=== PATIENT | female | born 1990 | race Hispanic/Latino ===

== ENCOUNTER 2019-02-12 09:26 | Emergency (ER) | payer SELFPAY ==
[2019-02-12 10:50] LABS: Absolute Lymphocytes (CBC) 1.4 K/uL (0.7-4.9); Basophils % 0.5 % (0-1.3); Lymphocytes % 22.7 % (15.3-44.8); MPV 9.3 fL (7.6-11.3); RBC Red Blood Cell Count 4.08 M/uL (3.86-4.86)
[2019-02-12 11:02] LABS: BUN Blood Urea Nitrogen 12 mg/dL (7-18); Bicarbonate 27 mmol/L (21-32); Glucose Level 93 mg/dL (74-106); Potassium 3.9 mmol/L (3.5-5.1); Sodium Level 142 mmol/L (136-145)
--- NOTE | 2019-02-12 13:07 | ER ---
Nurse's Notes [facility] Name: Robyn Leung Age: 28 yrs Sex: Female : 1990 Arrival Date: 02/12/2019 Time: 09:30 Bed 16 Private MD: Diagnosis: Viral Cephalgia Presentation: 02/12 09:42 Presenting complaint: Patient states: "I woke up today with congestion, a cough, stiff aa5 neck, and I've been having headaches". Transition of care: patient was not received from another setting of care. Onset of symptoms was February 12, 2019. Risk Assessment: Do you want to hurt yourself or someone else? Patient reports no desire to harm self or others. Initial Sepsis Screen: Does the patient meet any 2 criteria? No. Patient's initial sepsis screen is negative. Does the patient have a suspected source of infection? No. Patient's initial sepsis screen is negative. Care prior to arrival: None. 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 - Social history:: Smoking status: Patient/guardian denies using tobacco. - Ebola Screening: : No symptoms or risks identified at this time. - Family history:: not pertinent. - Hospitalizations: : No recent hospitalization is reported. Screenin:00 Abuse screen: Denies threats or abuse. Nutritional screening: No deficits noted. tw2 Tuberculosis screening: No symptoms or risk factors identified. Fall Risk None identified. Assessment: 10:06 Reassessment: provider at bedside at this time. tw2 10:15 General: Appears in no apparent distress. obese, Behavior is calm, cooperative, tw2 appropriate for age. Pain: Denies pain. Neuro: Level of Consciousness is awake, alert, obeys commands, Oriented to person, place, time, situation, Reports "i just feel drowsy like and have a stiff neck". Cardiovascular: Heart tones S1 S2 Patient's skin is warm and dry. Respiratory: Airway is patent Respiratory effort is even, unlabored, Respiratory pattern is regular, symmetrical, Breath sounds are clear bilaterally. GI: No signs and/or symptoms were reported involving the gastrointestinal system. : No signs and/or symptoms were reported regarding the genitourinary system. EENT: Reports nasal congestion nasal discharge that is yellow "i had some discharge this morning but its gone now". Derm: No signs and/or symptoms reported regarding the dermatologic system. Musculoskeletal: Range of motion: intact in all extremities. 11:39 Reassessment: Patient appears in no apparent distress at this time. No changes from tw2 previously documented assessment. Patient and/or family updated on plan of care and expected duration. Pain level reassessed. Patient is alert, oriented x 3, equal unlabored respirations, skin warm/dry/pink. 11:55 Reassessment: [facility] at bedside. jl7 13:09 Reassessment: patient sleeping on bed. mg2 13:29 Reassessment: Patient denies pain at this time. Patient states feeling better. Patient mg2 states symptoms have improved. Vital Signs: 09:43 BP 120 / 74; Pulse 91; Resp 18 S; Temp 98.2(O); Pulse Ox 100% on R/A; Weight 112.49 kg aa5 (R); Height 5 ft. 0 in. (152.40 cm) (R); Pain 2/10; 10:44 BP 110 / 72; Pulse 68; Resp 17; Pulse Ox 100% on R/A; tw2 11:39 BP 115 / 70; Pulse 72; Resp 17; Pulse Ox 98% on R/A; tw2 13:08 BP 137 / 80; Pulse 72; Resp 18; Pulse Ox 100% on R/A; mg2 09:43 Body Mass Index 48.43 (112.49 kg, 152.40 cm) aa5 ED Course: 09:30 Patient arrived in ED. mr 09:43 Triage completed. aa5 09:43 Arm band placed on. aa5 09:55 Droplet isolation initiated. tw2 09:55 Bed in low position. Call light in reach. threat monitoring analyst on. Pulse ox on. NIBP on. tw2 10:00 Iesha Funez RN is Primary Nurse. tw2 10:05 Tarik Ramachandran MD is Attending Physician. rn 10:25 Inserted saline lock: 22 gauge in right antecubital area, using aseptic technique. tw2 Blood collected. 12:04 Report given to Saida burkett. tw2 13:29 No provider procedures requiring assistance completed. IV discontinued, intact, mg2 bleeding controlled, No redness/swelling at site. Pressure dressing applied. Administered Medications: No medications were administered Outcome: 13:06 Discharge ordered by . rn 13:29 Discharged to home ambulatory. mg2 13:29 Condition: stable 13:29 Discharge instructions given to patient, Instructed on discharge instructions, follow up and referral plans. Demonstrated understanding of instructions, follow-up care. 13:29 Patient left the ED. mg2 Signatures: Isamar Gordon Roman, MD MD rn Sonja Nguyễn, RN RN aa5 Iesha Funez RN RN tw2 Walt Mendez, SAIDA RN jl7 Jace Dominguez, RN RN mg2
--- NOTE | 2019-02-12 13:08 | EDPHYS ---
Physician Documentation [facility] Name: Robyn Leung Age: 28 yrs Sex: Female : 1990 Arrival Date: 02/12/2019 Time: 09:30 Bed 16 Private MD: ED Physician Tarik Ramachandran HPI: 02/12 10:22 This 28 yrs old Female presents to ER via Ambulatory with complaints of Cough, rn Congestion, Stiff Neck. 10:22 The patient or guardian reports cough, flu symptoms. Onset: The symptoms/episode rn began/occurred this morning. Severity of symptoms: At their worst the symptoms were mild, in the emergency department the symptoms are unchanged. Modifying factors: The symptoms are alleviated by nothing, the symptoms are aggravated by nothing. The patient has not experienced similar symptoms in the past. The patient has not recently seen a physician. Reports cough, congestion, boss told her to come in because her boss just diagnosed with viral meningitis. Patient reports sore throat, fatigue, headache, congestion, no fever, no medical problems. . 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 - Social history:: Smoking status: Patient/guardian denies using tobacco. - Ebola Screening: : No symptoms or risks identified at this time. - Family history:: not pertinent. - Hospitalizations: : No recent hospitalization is reported. ROS: 10:23 Constitutional: Negative for fever, chills, and weight loss, Eyes: Negative for injury, rn pain, redness, and discharge, ENT: + sore throat and congestion Neck: Negative for injury, and swelling, Cardiovascular: Negative for chest pain, palpitations, and edema, Respiratory: Negative for shortness of breath, wheezing, and pleuritic chest pain, Abdomen/GI: Negative for abdominal pain, nausea, vomiting, diarrhea, and constipation, MS/Extremity: Negative for injury and deformity, Skin: Negative for injury, rash, and discoloration, Neuro: + headache Exam: 10:23 Constitutional: This is a well developed, well nourished patient who is awake, alert, rn and in no acute distress. Head/Face: Normocephalic, atraumatic. Eyes: Pupils equal round and reactive to light, extra-ocular motions intact. Lids and lashes normal. Conjunctiva and sclera are non-icteric and not injected. Cornea within normal limits. Periorbital areas with no swelling, redness, or edema. ENT: + mild pharyngeal erythema with spots on uvula, no stridor, + tender anterior cervical LAD Neck: Trachea midline, no thyromegaly or masses palpated, Supple, full range of motion without nuchal rigidity, or vertebral point tenderness. No Meningismus. Respiratory: No increased work of breathing, no retractions or nasal flaring. Skin: Warm, dry with normal turgor. Normal color with no rashes, no lesions, and no evidence of cellulitis. MS/ Extremity: Pulses equal, no cyanosis. Neurovascular intact. Full, normal range of motion. Equal circumference. Neuro: Awake and alert, GCS 15, oriented to person, place, time, and situation. Cranial nerves II-XII grossly intact. Motor strength 5/5 in all extremities. Sensory grossly intact. Cerebellar exam normal. Vital Signs: 09:43 BP 120 / 74; Pulse 91; Resp 18 S; Temp 98.2(O); Pulse Ox 100% on R/A; Weight 112.49 kg aa5 (R); Height 5 ft. 0 in. (152.40 cm) (R); Pain 2/10; 10:44 BP 110 / 72; Pulse 68; Resp 17; Pulse Ox 100% on R/A; tw2 11:39 BP 115 / 70; Pulse 72; Resp 17; Pulse Ox 98% on R/A; tw2 13:08 BP 137 / 80; Pulse 72; Resp 18; Pulse Ox 100% on R/A; mg2 09:43 Body Mass Index 48.43 (112.49 kg, 152.40 cm) aa5 MDM: 10:05 Patient medically screened. rn 13:04 Differential Diagnosis: Influenza Upper Respiratory Infection Viral Syndrome Other rn viral meningitis. Data reviewed: vital signs, nurses notes, lab test result(s), and as a result, I will discharge patient. Counseling: I had a detailed discussion with the patient and/or guardian regarding: the historical points, exam findings, and any diagnostic results supporting the discharge/admit diagnosis, lab results, radiology results, the need for outpatient follow up, to return to the emergency department if symptoms worsen or persist or if there are any questions or concerns that arise at home. Response to treatment: the patient's symptoms have mildly improved after treatment, and as a result, I will discharge patient. Special discussion: I discussed with the patient/guardian in detail that at this point there is no indication for admission to the hospital. It is understood, however, that if the symptoms persist or worsen the patient needs to return immediately for re-evaluation. ED course: Symptoms consistent with viral syndrome, labs and csf checked for sick exposure/boss, CSF no growth and neg for bacterial meningitis, possible viral meningitis and sent home. Possible that this is viral meningitis, but as I explained to patient, is non-toxic, normal vitals, normal exam, and no treatment for viral meningitis. CLose contact precautions and return precautions given and understood. . 02/12 10:12 Order name: Strep; Complete Time: 11:15 02/12 10:12 Order name: Flu; Complete Time: 11:15 rn 02/12 10:12 Order name: Refugio Screen Profile; Complete Time: 13:04 rn 02/12 10:12 Order name: CBC with Diff; Complete Time: 11:15 rn 02/12 10:12 Order name: Basic Metabolic Panel; Complete Time: 11:15 rn 02/12 10:12 Order name: Procalcitonin; Complete Time: 11:47 rn 02/12 10:12 Order name: IV Start; Complete Time: 10:43 rn 02/12 11:07 Order name: Throat Culture EDMS Administered Medications: No medications were administered Disposition: 02/12/19 13:06 Discharged to Home. Impression: Viral Cephalgia. - Condition is Stable. - Discharge Instructions: General Headache Without Cause. - Medication Reconciliation Form, Thank You Letter, Antibiotic Education, Prescription Opioid Use, Work release form form. - Follow up: Private Physician; When: As needed; Reason: Recheck today's complaints, Re-evaluation by your physician. - Problem is new. - Symptoms have improved. Signatures: Dispatcher [employer] EDMS Tarik Ramachandran MD MD rn Calderon, Audri RN SAIDA aa5 Jace Dominguez RN RN mg2 Corrections: (The following items were deleted from the chart) 13:29 13:06 02/12/2019 13:06 Discharged to Home. Impression: Viral Cephalgia. Condition is mg2 Stable. Forms are Work release form, Medication Reconciliation Form, Thank You Letter, Antibiotic Education, Prescription Opioid Use. Follow up: Private Physician; When: As needed; Reason: Recheck today's complaints, Re-evaluation by your physician. Problem is new. Symptoms have improved. rn
[2019-02-12 13:54] VITALS: TEMP 98.2
[2019-02-12 13:58] VITALS: BP 137/80; O2SAT 100
== END 2019-02-12 13:29 | disposition home or self-care (01) ==
LOC: ER 09:26
DX: G44.89 Other headache syndrome (principal); Z88.0 Allergy status to penicillin
CPT/HCPCS: 36415; 80048; 84145; 85025; 86308; 87070; 87081; 87804; 99285

== ENCOUNTER 2020-06-28 10:59 | Inpatient (IN) | payer SELFPAY ==
[2020-06-28] MEDS ORDERED: ONDANSETRON 4 MG/2 ML VIAL ONE (13:22)
[2020-06-28] MEDS ORDERED: MORPHINE 4 MG/ML SYR ONE ×2 (13:22→17:09)
[2020-06-28] MEDS ORDERED: FAMOTIDINE 20 MG/2 ML VIAL IV ONE (13:22)
--- NOTE | 2020-06-28 14:07 | RAD REPORT ---
EXAM DESCRIPTION: US - Abdomen Exam Limited - 06/28/2020 1:32 pm CLINICAL HISTORY: Abdominal pain. COMPARISON: None. FINDINGS: The gallbladder wall is borderline thickened. . A 1.6 centimeter stone is present within t he gallbladder neck. The biliary tree is normal caliber. IMPRESSION: 1.6 centimeter gallstone within the neck of the gallbladder Borderline thickening of the gallbladder wall may indicate cholecystitis or be a normal finding for t he patient and should be correlated clinically.
[2020-06-28 14:08] LABS: Basophils % 0.4 % (0-1.3); Hematocrit 27.4 % (36.0-45.0); Lymphocytes % 27.3 % (15.3-44.8); MPV 9.1 fL (7.6-11.3); RBC Red Blood Cell Count 4.09 M/uL (3.86-4.86)
[2020-06-28 14:25] LABS: ALT/SGPT 19 U/L (12-78); AST/SGOT 15 U/L (15-37); Albumin 3.3 g/dL (3.4-5.0); Alkaline Phosphatase 52 U/L (45-117); BUN Blood Urea Nitrogen 13 mg/dL (7-18); Bicarbonate 27 mmol/L (21-32); Bilirubin Direct < 0.1 mg/dL (0-0.2); Bilirubin Total 0.4 mg/dL (0.2-1.0); Glucose Level 89 mg/dL (74-106); Lipase 108 U/L (73-393); Potassium 4.1 mmol/L (3.5-5.1); Sodium Level 141 mmol/L (136-145)
[2020-06-28 14:33] LABS: Anisocytosis 1+; Blood Morphology Comment NOTED (NOT SEEN); Hypochromasia 1+; Platelet Estimate ADEQ; Platelets, Giant NOTED; White Blood Cell Scan OK (OK)
[2020-06-28 14:39] LABS: Urine Blood NEGATIVE (NEG); Urine Glucose NEGATIVE (NEG); Urine Protein NEGATIVE (NEG); Urine Specific Gravity 1.025 (1.005-1.030); Urine pH 8.5 (5.0-7.0)
--- NOTE | 2020-06-28 15:30 | ER ---
Nurse's Notes [facility] Name: Robyn Leung Age: 29 yrs Sex: Female : 1990 Arrival Date: 06/28/2020 Time: 11:01 Bed 14 Private MD: Diagnosis: Acute cholecystitis Presentation: 06/28 11:05 Chief complaint: Patient states: Nausea and epigastric pain 2 weeks. Intermittent, last ca1 about 20 minutes and just goes away. Today, it started at around 0900, severe and did not go away, now radiating to the back. Reports increased in BM but not diarrhea, vomiting. Coronavirus screen: Client denies travel out of the [place] in the last 14 days. nausea, vomiting. Client presents with at least one sign or symptom that may indicate coronavirus-19. Standard/surgical mask placed on the client. Provider contacted for isolation considerations. Ebola Screen: Patient negative for fever greater than or equal to 101.5 degrees Fahrenheit, and additional compatible Ebola Virus Disease symptoms Patient denies exposure to infectious person. Patient denies travel to an Ebola-affected area in the 21 days before illness onset. No symptoms or risks identified at this time. Initial Sepsis Screen: Does the patient meet any 2 criteria? No. Patient's initial sepsis screen is negative. Does the patient have a suspected source of infection? No. Patient's initial sepsis screen is negative. Risk Assessment: Do you want to hurt yourself or someone else? Patient reports no desire to harm self or others. Onset of symptoms was June 28, 2020. 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 - Social history:: Smoking status: Patient reports the use of cigarette tobacco products, denies chronic smoking, but will smoke occasionally. Screenin:11 Abuse screen: Denies threats or abuse. Nutritional screening: No deficits noted. jd3 Tuberculosis screening: No symptoms or risk factors identified. Fall Risk Ambulatory Aid- None/Bed Rest/Nurse Assist (0 pts). Gait- Normal/Bed Rest/Wheelchair (0 pts) Mental Status- Oriented to own ability (0 pts). Total Mckeon Fall Scale indicates No Risk (0-24 pts). Assessment: 13:09 General: Appears in no apparent distress. uncomfortable, Behavior is calm, cooperative, jd3 appropriate for age. Pain: Complains of pain in abdomen Pain radiates to mid back area Quality of pain is described as sharp, tender. Neuro: Level of Consciousness is awake, alert, obeys commands, Oriented to person, place, time, situation. Cardiovascular: Denies chest pain, Capillary refill < 3 seconds Patient's skin is warm and dry. Respiratory: Airway is patent Respiratory effort is even, unlabored, Respiratory pattern is regular, symmetrical, Denies cough, shortness of breath. GI: Abdomen is round non-distended, Abd is soft X 4 quads Abdomen is tender to palpation X 4 quads. Reports upper abdominal pain, nausea. : No signs and/or symptoms were reported regarding the genitourinary system. EENT: No signs and/or symptoms were reported regarding the EENT system. Derm: Skin is intact, Skin is dry, Skin is normal, Skin temperature is warm. Musculoskeletal: Circulation, motion, and sensation intact. Range of motion: intact in all extremities. 14:11 Reassessment: Patient appears in no apparent distress at this time. No changes from jd3 previously documented assessment. Patient and/or family updated on plan of care and expected duration. Pain level reassessed. Patient is alert, oriented x 3, equal unlabored respirations, skin warm/dry/pink. 15:12 Reassessment: Patient appears in no apparent distress at this time. Patient and/or jd3 family updated on plan of care and expected duration. Pain level reassessed. Patient is alert, oriented x 3, equal unlabored respirations, skin warm/dry/pink. Patient states feeling better. 17:10 Reassessment: Patient appears in no apparent distress at this time. Patient and/or jd3 family updated on plan of care and expected duration. Pain level reassessed. Patient is alert, oriented x 3, equal unlabored respirations, skin warm/dry/pink. pt reporting returning pain, provider notified, medicated per order, see MAR. 18:13 Reassessment: Patient appears in no apparent distress at this time. Patient and/or jd3 family updated on plan of care and expected duration. Pain level reassessed. Patient is alert, oriented x 3, equal unlabored respirations, skin warm/dry/pink. report attempt made to 2nd floor, was told nurse will call back Patient states feeling better. Vital Signs: 11:05 BP 114 / 064; Pulse 86; Resp 16 S; Temp 97.9(TE); Pulse Ox 100% on R/A; Weight 110.22 ca1 kg (R); Height 5 ft. 0 in. (152.40 cm) (R); Pain 7/10; 15:11 BP 129 / 68; Pulse 67; Resp 17 S; Pulse Ox 97% on R/A; jd3 17:09 BP 108 / 64; Pulse 74; Resp 17 S; Pulse Ox 100% on R/A; jd3 18:00 BP 110 / 66; Pulse 87; Resp 17 S; Pulse Ox 100% on R/A; jd3 11:05 Body Mass Index 47.46 (110.22 kg, 152.40 cm) ca1 ED Course: 11:01 Patient arrived in ED. ag5 11:08 Triage completed. ca1 11:08 Arm band placed on right wrist. ca1 12:16 Kain Berman PA is PHCP. jmm 12:16 Max Main MD is Attending Physician. jmm 12:49 Mukesh Schwartz RN is Primary Nurse. jd3 13:08 Missed attempt(s): 20 gauge in right forearm. Bleeding controlled, band aid applied, jd3 catheter tip intact. 13:11 Patient has correct armband on for positive identification. Placed in gown. Bed in low jd3 position. Call light in reach. Side rails up X 1. Pulse ox on. NIBP on. 13:27 US Abdomen Limited In Process Unspecified. EDMS 14:01 Inserted saline lock: 22 gauge in right antecubital area, using aseptic technique. ss Blood collected. 15:29 Lane Law DO is Hospitalizing Provider. m 18:14 No provider procedures requiring assistance completed. Patient admitted, IV remains in jd3 place. Administered Medications: 14:08 Drug: morphine 4 mg Route: IVP; Site: right antecubital; jd3 15:05 Follow up: Response: No adverse reaction; RASS: Alert and Calm (0) jd3 14:09 Drug: Zofran (Ondansetron) 4 mg Route: IVP; Site: right antecubital; jd3 15:05 Follow up: Response: No adverse reaction jd3 14:10 Drug: Pepcid 20 mg Route: IVP; Site: right antecubital; jd3 15:10 Follow up: Response: No adverse reaction jd3 15:29 Drug: Flagyl 500 mg Volume: 100 ml; Route: IVPB; Rate: 200 ml/hr; Infused Over: 30 jd3 mins; Site: right antecubital; 16:18 Follow up: Response: No adverse reaction; IV Status: Completed infusion; IV Intake: jd3 100ml 16:18 Drug: Cipro 400 mg Volume: 200 ml; Route: IVPB; Infused Over: 60 mins; Site: right jd3 antecubital; 17:15 Follow up: Response: No adverse reaction; IV Status: Completed infusion jd3 17:00 Drug: morphine 4 mg Route: IVP; Site: right antecubital; jd3 18:00 Follow up: Response: No adverse reaction; RASS: Alert and Calm (0) jd3 Intake: 16:18 IV: 100ml; Total: 100ml. jd3 Outcome: 15:30 Decision to Hospitalize by Provider. isabela 18:37 Admitted to Med/surg accompanied by tech, via wheelchair, room 213, with chart, Report jd3 called to Iris CINTRON 18:37 Condition: stable 18:37 Instructed on the need for admit, Demonstrated understanding of instructions. 18:38 Patient left the ED. jd3 Signatures: Dispatcher [employer] EDMS Kain Berman PA PA jmm Smirch, Shelby, RN RN ss Davies, Jonathon, RN RN Zoey Solorio RN RN ca1 Gaskin, Ajare [facility]
--- NOTE | 2020-06-28 15:30 | EDPHYS ---
Physician Documentation [facility] Name: Robyn Leung Age: 29 yrs Sex: Female : 1990 Arrival Date: 06/28/2020 Time: 11:01 Bed 14 Private MD: ED Physician Max Main HPI: 06/28 12:44 This 29 yrs old Female presents to ER via Ambulatory with complaints of jmm Abdominal Pain. 12:44 The patient presents with abdominal pain. Onset: The symptoms/episode began/occurred jmm gradually. The symptoms do not radiate. Associated signs and symptoms: Pertinent positives: vomiting. The symptoms are described as achy. Modifying factors: The symptoms are alleviated by nothing, the symptoms are aggravated by nothing. This is a 29 year old female with no chronic medical conditions that presents to the ED with complaints of epigastric pain beginning approx 2 weeks ago worsened with eating. Patient states pain worsened earlier today. Denies fever. . 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 - Social history:: Smoking status: Patient reports the use of cigarette tobacco products, denies chronic smoking, but will smoke occasionally. ROS: 12:44 Constitutional: Negative for fever, chills, and weight loss, Cardiovascular: Negative jmm for chest pain, palpitations, and edema, Respiratory: Negative for shortness of breath, cough, wheezing, and pleuritic chest pain. 12:44 Abdomen/GI: Positive for abdominal pain. 12:44 All other systems are negative. Exam: 12:44 Constitutional: This is a well developed, well nourished patient who is awake, alert, jmm and in no acute distress. Head/Face: atraumatic. Eyes: EOMI, no conjunctival erythema appreciated ENT: Moist Mucus Membranes Neck: Trachea midline, Supple Chest/axilla: Normal chest wall appearance and motion. Cardiovascular: Regular rate and rhythm. No edema appreciated Respiratory: Normal respirations, no respiratory distress appreciated 12:44 Back: Normal ROM Skin: General appearance color normal MS/ Extremity: Moves all extremities, no obvious deformities appreciated, no edema noted to the lower extremities Neuro: Awake and alert, normal gait Psych: Behavior is normal, Mood is normal, Patient is cooperative and pleasant 12:44 Abdomen/GI: Inspection: obese Bowel sounds: normal, Palpation: nontender, moderate abdominal tenderness, in the right upper quadrant. Vital Signs: 11:05 BP 114 / 064; Pulse 86; Resp 16 S; Temp 97.9(TE); Pulse Ox 100% on R/A; Weight 110.22 ca1 kg (R); Height 5 ft. 0 in. (152.40 cm) (R); Pain 7/10; 15:11 BP 129 / 68; Pulse 67; Resp 17 S; Pulse Ox 97% on R/A; jd3 17:09 BP 108 / 64; Pulse 74; Resp 17 S; Pulse Ox 100% on R/A; jd3 18:00 BP 110 / 66; Pulse 87; Resp 17 S; Pulse Ox 100% on R/A; jd3 11:05 Body Mass Index 47.46 (110.22 kg, 152.40 cm) ca1 MDM: 12:33 Patient medically screened. [facility] 15:28 Data reviewed: vital signs, nurses notes. Counseling: I had a detailed discussion with [facility] the patient and/or guardian regarding: the historical points, exam findings, and any diagnostic results supporting the discharge/admit diagnosis, lab results, radiology results, the need for further work-up and treatment in the hospital. ED course: I discussed the patient with Dr. Coleman and Dr. Law whom accepted admission. . 06/28 12:43 Order name: Basic Metabolic Panel; Complete Time: 14:27 [facility] 06/28 12:43 Order name: CBC with Diff; Complete Time: 14:40 [facility] 06/28 12:43 Order name: Hepatic Function; Complete Time: 14:27 [facility] 06/28 12:43 Order name: Lipase; Complete Time: 14:27 [facility] 06/28 13:29 Order name: Urine Dipstick--Ancillary (enter results); Complete Time: 14:40 06/28 13:29 Order name: Urine --Ancillary (enter results); Complete Time: 14:40 06/28 12:48 Order name: US Abdomen Limited; Complete Time: 14:10 [facility] 06/28 14:12 Order name: CBC Smear Scan; Complete Time: 14:40 [facility] 06/28 14:12 Order name: Type And Screen [facility] 06/28 17:03 Order name: SARS-COV-2 RT PCR; Complete Time: 17:30 [facility] 06/28 17:55 Order name: Antibody Identification [facility] 06/28 12:43 Order name: IV Saline Lock; Complete Time: 14:01 [facility] 06/28 12:43 Order name: Labs collected and sent; Complete Time: 14:01 [facility] 06/28 12:43 Order name: Urine Dipstick-Ancillary (obtain specimen); Complete Time: 13:18 [facility] 06/28 12:43 Order name: Urine Test (obtain specimen); Complete Time: 13:18 [facility] Administered Medications: 14:08 Drug: morphine 4 mg Route: IVP; Site: right antecubital; jd3 15:05 Follow up: Response: No adverse reaction; RASS: Alert and Calm (0) jd3 14:09 Drug: Zofran (Ondansetron) 4 mg Route: IVP; Site: right antecubital; jd3 15:05 Follow up: Response: No adverse reaction jd3 14:10 Drug: Pepcid 20 mg Route: IVP; Site: right antecubital; jd3 15:10 Follow up: Response: No adverse reaction jd3 15:29 Drug: Flagyl 500 mg Volume: 100 ml; Route: IVPB; Rate: 200 ml/hr; Infused Over: 30 jd3 mins; Site: right antecubital; 16:18 Follow up: Response: No adverse reaction; IV Status: Completed infusion; IV Intake: jd3 100ml 16:18 Drug: Cipro 400 mg Volume: 200 ml; Route: IVPB; Infused Over: 60 mins; Site: right jd3 antecubital; 17:15 Follow up: Response: No adverse reaction; IV Status: Completed infusion jd3 17:00 Drug: morphine 4 mg Route: IVP; Site: right antecubital; jd3 18:00 Follow up: Response: No adverse reaction; RASS: Alert and Calm (0) jd3 Disposition: 18:58 Co-signature as Attending Physician, Max Main MD I agree with the assessment and stacy plan of care. Disposition: 06/28/20 15:[address] Law for Observation. Preliminary diagnosis is Acute cholecystitis. - Bed requested for Telemetry/MedSurg (observation). - Status is Observation. jd3 - Condition is Stable. - Problem is new. - Symptoms are unchanged. Signatures: Dispatcher [employer] EDKS Michell Faria, RN RN Max Casillas MD MD cha Mickail, Joel, PA PA Mukesh Henley RN RN jd3 Zoey Gamez RN RN ca1 Corrections: (The following items were deleted from the chart) 16:23 15:17 CORONAVIRUS+MR.LAB.BRZ ordered. [facility] EDKS 17:05 15:30 Hospitalization Ordered by Lane Law DO for Observation. Preliminary diagnosis is Acute cholecystitis. Bed requested for Telemetry/MedSurg (observation). Status is Observation. Condition is Stable. Problem is new. Symptoms are unchanged. [facility] 18:38 17:05 06/28/2020 15:30 Hospitalization Ordered by Lane Law DO for Observation. jd3 Preliminary diagnosis is Acute cholecystitis. Bed requested for Telemetry/MedSurg (observation). Status is Observation. Condition is Stable. Problem is new. Symptoms are unchanged. dw
[2020-06-28] MEDS ORDERED: METRONIDAZOLE 500mg IVPB 500 MG/100 ML BAG IV ONE (15:40)
[2020-06-28] MEDS ORDERED: CIPROFLOXACIN 400mg IV 400 MG/200 ML BAG IV ONE (15:40)
--- NOTE | 2020-06-28 16:06 | P.HP ---
Certification for Inpatient Patient admitted to: Observation With expected LOS: <2 Midnights Patient will require the following post-hospital care: None Practitioner: I am a practitioner with admitting privileges, knowledge of patient current condition, hospital course, and medical plan of care. Services: Services provided to patient in accordance with Admission requirements found in Title 42 Section 412.3 of the Code of Federal Regulations Patient History Date of Service: 06/28/20 Primary Care Provider: Leonides Osborn NP Reason for admission: Epigastric pain, nausea, vomiting History of Present Illness: 29-year-old female with history of nausea, vomiting and abdominal pain. Patient reports she has been having abdominal pain for over 2 weeks. Pain is mainly to the epigastric region. It radiate to the back. Pain comes and goes. Worse with certain foods. She reported is increased nausea, vomiting since Sunday. Pain was severe today. She had to go home from work due to the pain. Patient came to the ER for further evaluation. In the ER patient was evaluated. Patient was anemic with hemoglobin 8.4. Patient appears to have underlying iron deficiency anemia. test negative. Urinalysis unremarkable. CMP unremarkable. Abdominal ultrasound showed 1.6 cm gallstone within the neck of the gallbladder. Borderline thickening of the gallbladder wall indicated cholecystitis. ER physician spoke to surgery. Surgery recommended hospitalization for treatment. Surgery requested that the patient be admitted under the hospitalist and surgery to be consulted. When I saw the patient ER, pain improved with medication. Allergies penicillin G Allergy (Mild, Verified 08/08/11 04:55) Rash PENICILLINS Allergy (Uncoded 05/19/15 08:13) Unknown Home medications list reviewed: Yes - Past Medical/Surgical History Diabetic: No -: Iron deficiency anemia -: Social tobacco/alcohol use -: Tubal ligation Psychosocial/ Personal History: Patient is - Family History Family History: Reviewed- Non-Contributory - Social History Smoking Status: Heavy Tobacco smoker (>10 cigarettes/day) Alcohol use: Yes CD- Drugs: No Caffeine use: Yes Place of Residence: Home Review of Systems General: As per HPI Eyes: Unremarkable ENT: Unremarkable Respiratory: Unremarkable Gastrointestinal: Nausea, Vomiting, Abdominal Pain, As per HPI Genitourinary: Unremarkable Musculoskeletal: Unremarkable Integumentary: Unremarkable Neurological: Unremarkable Lymphatics: Unremarkable Physical Examination - Physical Exam General: Alert, In no apparent distress, Oriented x3 HEENT: Atraumatic, Normocephalic, Mucous membr. moist/pink Neck: Supple Respiratory: Clear to auscultation bilaterally, Normal air movement Cardiovascular: Normal pulses, Regular rate/rhythm Gastrointestinal: Normal bowel sounds, Soft and benign, Non-distended, No rebound, No guarding, Tenderness (Pain to the epigastric and right upper quadrant region with palpation) Musculoskeletal: No erythema, No tenderness, No warmth Integumentary: No tenderness/swelling, No erythema, No warmth, No cyanosis Neurological: Normal speech, Normal strength at 5/5 x4 extr, Normal tone, Normal affect - Studies Laboratory Data (last 24 hrs) 06/28/20 14:00: WBC 7.1, Hgb 8.4 L, Hct 27.4 L, Plt Count 308 06/28/20 14:00: Sodium 141, Potassium 4.1, BUN 13, Creatinine 0.55, Glucose 89, Total Bilirubin 0.4, AST 15, ALT 19, Alkaline Phosphatase 52, Lipase 108 Assessment and Plan - Plan Impression: Abdominal pain, nausea vomiting secondary to acute cholecystitis with 1.6 cm gallstone within the neck of the gallbladder Chronic iron deficiency anemia Plan: Patient will be admitted for further evaluation and treatment. Will keep the patient NPO. Will continue with IV antibiotic therapy-Cipro and Flagyl. Will provide medication for pain and antibiotic therapy. Surgery has been consulted. ER physician spoke to surgery earlier. Anticipate surgery tomorrow morning. Will continue with IV fluids. Will provide DVT prophylaxis. Will evaluate for her chronic iron deficiency anemia. Will continue to reassess and monitor closely. Possible discharge as early as tomorrow if improved after surgery. Discharge Plan: Home Plan to discharge in: 48 Hours - Advance Directives Does patient have a Living Will: No Does patient have a Durable POA for Healthcare: No - Code Status/Comfort Care Code Status Assessed: Yes (Full code) Time Spent Managing Pts Care (In Minutes): 55
[2020-06-28] MEDS ORDERED: ACETAMINOPHEN 650MG/RECT SUPP PR PRN (18:53)
[2020-06-28] MEDS ORDERED: ONDANSETRON 4 MG/2 ML VIAL IV PRN (18:53)
[2020-06-28] MEDS ORDERED: MORPHINE 2 MG/ML SYR IV PRN (18:53)
[2020-06-28] MEDS ORDERED: ACETAMINOPHEN 500 MG TAB PO PRN (18:53)
[2020-06-28] MEDS ORDERED: METRONIDAZOLE 500mg IVPB 500 MG/100 ML BAG IV SCH (20:00)
[2020-06-28 20:02] LABS: Urine Appearance CLEAR; Urine Bilirubin NEGATIVE (NEG); Urine Blood NEGATIVE (NEG); Urine Color YELLOW; Urine Glucose NEGATIVE (NEG); Urine Protein 1+ (NEG); Urine Specific Gravity 1.025 (1.005-1.030)
[2020-06-28] MEDS: D5 0.9 NS 1,000 ML IV SCH (20:08)
[2020-06-28 20:15] LABS: Urine Microscopic Reflex ORDER UMIC
[2020-06-28] MEDS ORDERED: CIPROFLOXACIN 400mg IV 400 MG/200 ML BAG IV SCH (21:00)
[2020-06-28 21:24] LABS: Urine Amorphous Sediment 2+ /HPF (NONE SEEN); Urine Bacteria 20-50 /HPF (<20); Urine Mucus 2+ /HPF (NONE SEEN); Urine RBC <5 /HPF (NONE SEEN)
[2020-06-28 22:54] VITALS: BMI 39.2
[2020-06-29] MEDS: METRONIDAZOLE 500mg IVPB 500 MG/100 ML BAG IV SCH ×3 (00:01→16:05)
[2020-06-29 03:59] LABS: Absolute Lymphocytes (CBC) 1.8 K/uL (0.7-4.9); Basophils % 0.6 % (0-1.3); Hematocrit 24.5 % (36.0-45.0); Lymphocytes % 31.9 % (15.3-44.8); MPV 9.4 fL (7.6-11.3); RBC Red Blood Cell Count 3.63 M/uL (3.86-4.86)
[2020-06-29 04:35] LABS: BUN Blood Urea Nitrogen 9 mg/dL (7-18); Bicarbonate 26 mmol/L (21-32); Ferritin 2.7 ng/mL (8-388); Glucose Level 102 mg/dL (74-106); Magnesium 1.9 mg/dL (1.8-2.4); Potassium 3.6 mmol/L (3.5-5.1); Sodium Level 140 mmol/L (136-145); Transferrin 239 mg/dL (200-360)
[2020-06-29] MEDS: D5 0.9 NS 1,000 ML IV SCH ×2 (04:52→14:53)
[2020-06-29] MEDS ORDERED: INFLUENZA VACCINE (for 3y+) 0.5 ML DOSE IMVAC ONE (06:00)
[2020-06-29] MEDS: CIPROFLOXACIN 400mg IV 400 MG/200 ML BAG IV SCH ×2 (08:13→20:15)
[2020-06-29] MEDS ORDERED: FENTANYL CITR 100 MCG/2 ML ONE (08:20)
[2020-06-29] MEDS ORDERED: propofoL 200 MG/20 ML VIAL IV ONE (08:20)
[2020-06-29] MEDS ORDERED: LIDOCAINE 2% MPF 5 ML VIAL ONE (08:20)
[2020-06-29] MEDS ORDERED: dexAMETHasone 10 MG/ML VIAL ONE (08:20)
[2020-06-29] MEDS ORDERED: MIDAZOLAM HCL 2 MG/2 ML INJ ONE (08:20)
[2020-06-29] MEDS ORDERED: ONDANSETRON 4 MG/2 ML VIAL ONE (08:21)
[2020-06-29] MEDS ORDERED: ROCURONIUM 50 MG/5 ML VIAL IV ONE (08:21)
[2020-06-29] MEDS ORDERED: Ringers Lactate 1,000 ML IV ONE (08:55)
[2020-06-29] MEDS: Ringers Lactate 1,000 ML IV ONE ×2 (10:55→11:11)
[2020-06-29] MEDS ORDERED: HYDROMORPHONE HCL 1 MG/ML INJ ONE (10:56)
--- NOTE | 2020-06-29 11:09 | P.OP ---
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
[2020-06-29] MEDS ORDERED: GLYCOPYRROLATE 0.2 MG/ML SYR ONE (11:19)
[2020-06-29] MEDS: HYDROMORPHONE HCL 2 MG/ML inj ONE ×3 (11:25→12:12)
[2020-06-29] MEDS ORDERED: NEOSTIGMINE 1 MG/ML -5 ML ONE (11:30)
[2020-06-29] MEDS ORDERED: HYDROMORPHONE HCL 1 MG/ML INJ IV PRN (11:31)
--- NOTE | 2020-06-29 11:34 | PREOPCON ---
Date of Consultation: 06/28/2020 Reason: Abdominal pain. History Of Present Illness: Patient is a 29-year-old female who comes in with 2-week history of bili becky colic, over the last 3 or 4 days, it has gotten worse. This is postprandial in nature with epiga stric pain going to the back associated with nausea, bloating, belching, and heartburn. No vomiting. No diarrhea or constipation. No blood in her stool. No dysuria, hematuria. No sore throat, runny nose, cough, headaches, dizziness. No chest pain. Review of Systems: Otherwise, unremarkable. Past Medical History: Significant for iron-deficient anemia and tubal ligation. Allergies: INCLUDE PENICILLIN. Social History: Patient does smoke and drink occasionally. Family History: Significant for diabetes. Physical Examination: Vital Signs: Stable. She is afebrile. General: She is awake, alert, and oriented x3. Head and Neck: Cranial nerves 2 through 12 are grossly within normal limits. Neck: No neck masses. No JVD. Throat clear. Neck: Supple. Chest: Clear. Heart: S1 and S2. Abdomen: Soft, nondistended, positive right upper quadrant tenderness. No rebound, rigidity, or gua rding. Extremities: Adequately perfused. Nontender. Neuro: Nonfocal. Imaging: Abdominal ultrasound reviewed, shows a 1.6 cm gallstone within the neck of the gallbladder but borderline thickening of the gallbladder wall. Laboratory Data: Her white count is 5.7; her H and H on admission were 8.4 and 27.4, this morning ar e 7.5 and 24.5; there is no left shift. LFTs are within normal limits. Her MCV is 67.5. Assessment: 29-year-old female with acute cholecystitis and cholelithiasis and iron-deficiency anemi a. Recommendation: Medical workup for the iron deficiency and we will go ahead and proceed with darrel king, possibly open. Patient and her understand the risks, benefits, and alternatives and agre es to procedure. IV antibiotics is ordered. /MODL Voice ID: [id number] Report ID: [id number]
--- NOTE | 2020-06-29 11:43 | OP ---
Date of Procedure: 06/29/2020 Surgeon: Lowell Coleman MD Wheel Filler: JUAN Pollard. Preoperative Diagnoses: Acute cholecystitis and cholelithiasis, anemia. Postoperative Diagnoses: Acute cholecystitis and cholelithiasis, anemia. Procedure: Laparoscopic cholecystectomy. Estimated Blood Loss: Minimal. Specimen: Gallbladder. Finding: As above. Anesthesia: General. Complications: None. Disposition: The patient tolerated the procedure in stable condition, taken to Recovery in good gene ral condition. Description Of Procedure: The patient was brought to the OR and placed in supine position. General anesthesia begun. The patient was prepped and draped in the usual sterile fashion. Marcaine 0.5% wa s infiltrated locally. A 15-blade was used to make a 1 cm supraumbilical midline incision. Subcutan eous tissue was divided. Fascia was identified and divided. #1 Vicryl stay suture was placed. Preethi toneal cavity was entered with sharp and blunt dissection. 12 mm trocar was placed into the peritone al cavity under direct vision. Pneumoperitoneum was established. Then, three 5 mm trocars placed, o ne in the epigastrium just to the right of midline and two in the right subcostal region. Laparoscop y revealed inflammation of the gallbladder consistent with acute cholecystitis and distention of the gallbladder. Fundus retracted superiorly. Infundibulum was identified and retracted inferolaterally . Cystic duct and cystic artery were clearly identified with blunt dissection. Clips were placed. Both structures were divided. Cautery used to remove the gallbladder from the liver bed. Bleeding o n the liver bed was controlled with cautery. Gallbladder was retrieved through the umbilicus via an EndoCatch bag. Right upper quadrant was irrigated, effluent was clear. No evidence of bleeding or b ile leakage appreciated. Subsequently, all trocars were removed under direct vision. Stay sutures w ere tied to each other and reapproximated the fascial defect. Subcutaneous wounds were irrigated. B leeding was controlled with cautery. 3-0 chromic was used to approximate the subcutaneous tissue and unique were used to close skin. Sterile dressing was applied. The patient was awakened and taken to Recovery in good general condition. /MODL Voice ID: [id number] Report ID: [id number]
[2020-06-29] MEDS ORDERED: POTASSIUM CL SA 10 MEQ TAB PO ONE (12:00)
[2020-06-29] MEDS ORDERED: TRAMADOL HCL 50 MG TAB PO PRN (12:48)
--- NOTE | 2020-06-29 12:48 | P.PN ---
Subjective Date of Service: 06/29/20 Primary Care Provider: Leonides Osborn NP Chief Complaint: Epigastric pain, nausea, vomiting Subjective: Improving, Doing well Physical Examination - Vital Signs Temperature: 97.3 F Blood Pressure: 134/77 Pulse: 72 Respirations: 16 Pulse Ox (%): 98 - Physical Exam General: Alert, In no apparent distress, Oriented x3, Cooperative HEENT: Atraumatic Respiratory: Clear to auscultation bilaterally Cardiovascular: Normal pulses, Regular rate/rhythm Gastrointestinal: Normal bowel sounds, Tenderness (Pain to the right upper quadrant and epigastric region noted.) Neurological: Normal speech, Normal strength at 5/5 x4 extr, Normal tone, Normal affect - Studies Laboratory Data (last 24 hrs) 06/29/20 03:36: Sodium 140, Potassium 3.6, BUN 9, Creatinine 0.62, Glucose 102, Magnesium 1.9 06/29/20 03:36: WBC 5.7 D, Hgb 7.5 L*, Hct 24.5 L, Plt Count 273 06/28/20 14:00: WBC 7.1, Hgb 8.4 L, Hct 27.4 L, Plt Count 308 06/28/20 14:00: Sodium 141, Potassium 4.1, BUN 13, Creatinine 0.55, Glucose 89, Total Bilirubin 0.4, AST 15, ALT 19, Alkaline Phosphatase 52, Lipase 108 Microbiology Data (last 24 hrs): 06/28/20 19:53 Blood - Blood Anaerobic Blood Culture - Final 06/28/20 19:44 Blood - Blood Anaerobic Blood Culture - Final Medications List Reviewed: Yes Assessment & Plan Discharge Plan: Home Plan to discharge in: 24 Hours Physician Review Additional Text: Impression: Abdominal pain, nausea vomiting secondary to acute cholecystitis with 1.6 cm gallstone within the neck of the gallbladder status post laparoscopic cholecystectomy Chronic iron and B12 deficiency anemia Plan: Abdominal pain, nausea vomiting secondary to acute cholecystitis with 1.6 cm gallstone within the neck of the gallbladder status post laparoscopic cholecystectomy: Case discussed with surgery after laparoscopic cholecystectomy. Surgery wants to monitor the patient Overnite. Diet ordered. Diet is to be advanced as tolerated. Will provide medication for pain. Patient with iron and B12 deficiency. Will start supplementation. Patient will need further workup as an outpatient with GI. No heavy lifting, pushing or pulling. Anticipate improvement over the next 24 hr with possible discharge tomorrow. Chronic iron and B12 deficiency anemia: Hemoglobin stable. Will start iron and B12 supplementation. Suspect this may be diet related. Patient should have GI workup as an outpatient to further evaluate. This may include EGD and colonoscopy. Patient also should see gynecology as an outpatient. Time Spent Managing Pts Care (In Minutes): 55
[2020-06-29] MEDS ORDERED: CYANOCOBALAMIN 1000MCG/ML INJ IM ONE (12:49)
[2020-06-29] MEDS: FAMOTIDINE 20 MG TAB PO SCH ×2 (13:15→20:10)
[2020-06-29] MEDS: ONDANSETRON 4 MG/2 ML VIAL IV PRN ×2 (13:15→20:11)
[2020-06-29] MEDS: SOD FERRIC GLUC COMPLX/SUCROSE 125 MG in NA CHLORIDE 0.9% 100 ML IV SCH (13:15)
[2020-06-29] MEDS ORDERED: Phenylephrine HCl 10 MG/ML 1 ML VIAL ONE (13:24)
[2020-06-29] MEDS ORDERED: NS 0.9% VIAL 10 ML ONE (13:24)
[2020-06-29] MEDS: HYDROCODONE/APAP 7.5/325 MG TAB PO PRN ×2 (16:07→20:11)
[2020-06-29 19:10] LABS: Hematocrit 27.6 % (36.0-45.0)
[2020-06-29] MEDS ORDERED: ENOXAPARIN 40 MG/0.4 ML SQ SCH (21:00)
[2020-06-29 21:43] VITALS: O2SAT 93
[2020-06-30] MEDS: METRONIDAZOLE 500mg IVPB 500 MG/100 ML BAG IV SCH ×2 (00:42→08:43)
[2020-06-30] MEDS: D5 0.9 NS 1,000 ML IV SCH (00:53)
[2020-06-30] MEDS ORDERED: D5 0.9 NS 1,000 ML IV SCH (03:53)
[2020-06-30 06:08] LABS: BUN Blood Urea Nitrogen 4 mg/dL (7-18); Bicarbonate 24 mmol/L (21-32); Glucose Level 111 mg/dL (74-106); Potassium 4.1 mmol/L (3.5-5.1); Sodium Level 139 mmol/L (136-145)
[2020-06-30] MEDS: HYDROCODONE/APAP 7.5/325 MG TAB PO PRN (06:32)
[2020-06-30 07:35] LABS: Basophils % 0.4 % (0-1.3); Hematocrit 26.6 % (36.0-45.0); Lymphocytes % 7.8 % (15.3-44.8); MPV 9.6 fL (7.6-11.3); RBC Red Blood Cell Count 3.96 M/uL (3.86-4.86)
[2020-06-30 08:02] LABS: Anisocytosis 3+; Blood Morphology Comment NOTED (NOT SEEN); Hypochromasia 2+; Ovalocytes SLIGHT; Platelet Estimate ADEQ; Platelets, Giant FEW; Polychromasia 1+; White Blood Cell Scan OK (OK)
[2020-06-30 08:36] VITALS: BP 126/75; TEMP 97.8
[2020-06-30] MEDS: SOD FERRIC GLUC COMPLX/SUCROSE 125 MG in NA CHLORIDE 0.9% 100 ML IV SCH (08:42)
[2020-06-30] MEDS: FAMOTIDINE 20 MG TAB PO SCH (08:42)
[2020-06-30] MEDS: ONDANSETRON 4 MG/2 ML VIAL IV PRN (08:45)
[2020-06-30] MEDS ORDERED: CYANOCOBALAMIN 1,000 MCG TAB PO SCH (09:00)
[2020-06-30] MEDS: CIPROFLOXACIN 400mg IV 400 MG/200 ML BAG IV SCH (09:00)
--- NOTE | 2020-06-30 09:22 | P.DS ---
Admission Date: 06/29/20 Discharge Date: 06/30/20 Primary Care Provider: Leonides Dickson NP Disposition: ROUTINE DISCHARGE Discharge Condition: GOOD Reason for Admission: Epigastric pain, nausea, vomiting Consultations: Surgery-Dr. Coleman Procedures: ABUS: COMPARISON: None. FINDINGS: The gallbladder wall is borderline thickened. . A 1.6 centimeter stone is present within the gallbladder neck. The biliary tree is normal caliber. IMPRESSION: 1.6 centimeter gallstone within the neck of the gallbladder Borderline thickening of the gallbladder wall may indicate cholecystitis. Surgery: Date of Procedure: 06/29/2020 Surgeon: Lowell Coleman MD Tool Design Drafter: JUAN Pollard. Preoperative Diagnoses: Acute cholecystitis and cholelithiasis, anemia. Postoperative Diagnoses: Acute cholecystitis and cholelithiasis, anemia. Procedure: Laparoscopic cholecystectomy. Estimated Blood Loss: Minimal. Specimen: Gallbladder. Finding: As above. Anesthesia: General. Complications: None. Medical problem list: Abdominal pain, nausea, and vomiting secondary to acute cholecystitis with 1.6 cm gallstone within the neck of the gallbladder status post laparoscopic cholecystectomy Chronic iron and B12 deficiency anemia Obesity, BMI 39.2 Brief History of Present Illness: 29-year-old female with history of nausea, vomiting and abdominal pain. Patient reports she has been having abdominal pain for over 2 weeks. Pain is mainly to the epigastric region. It radiate to the back. Pain comes and goes. Worse with certain foods. She reported is increased nausea, vomiting since Sunday. Pain was severe today. She had to go home from work due to the pain. Patient came to the ER for further evaluation. In the ER patient was evaluated. Patient was anemic with hemoglobin 8.4. Patient appears to have underlying iron deficiency anemia. test negative. Urinalysis unremarkable. CMP unremarkable. Abdominal ultrasound showed 1.6 cm gallstone within the neck of the gallbladder. Borderline thickening of the gallbladder wall indicated cholecystitis. ER physician spoke to surgery. Surgery recommended hospitalization for treatment. Surgery requested that the patient be admitted under the hospitalist and surgery to be consulted. When I saw the patient ER, pain improved with medication. Hospital Course: Patient presented with abdominal pain, nausea and vomiting. Patient found to have acute cholecystitis with 1.6 cm gallstone within the neck of the gallbladder. Patient was admitted for further evaluation and treatment. Patient was seen and evaluated by surgery. Surgical intervention was required and recommended. Patient had laparoscopic cholecystectomy. Patient tolerated procedure well. Post operatively, patient without significant pain and tolerating diet. At discharge patient will continue with Cipro 500 mg 1 pill twice daily for 10 days as recommended by surgery. Surgery will provide pain medication for the patient to be use as needed. No heavy lifting, pushing or pulling. Postoperative care will be provided. Wound care as recommended by surgery. Patient may return to work on Sunday. She may continue with light duty. Recommend follow up with surgery within 1 week to follow up this hospitalization and continue her care. Patient was found to be anemic. Hemoglobin stable. Patient found to have iron and B12 deficiency. Patient denied any melena, rectal bleeding or heavy periods. This may be diet related verses GERD. Patient was given IV iron and B12 supplementation. Hemoglobin stable at 8.0. At discharge patient will continue with iron 325 mg 1 pill twice daily and vitamin-B 12 1000 mg daily. Recommend to recheck lab-CBC in 2-4 weeks to monitor stability. Patient will also be started on Pepcid 20 mg 1 pill twice daily for suspected GERD. Recommendation is for the patient to see GI as an outpatient to further evaluate her anemia. Patient will require EGD and colonoscopy. 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 Patient may require stool softener as iron can cause constipation. Recommend with her weeks to further monitor. Lifestyle modification education provided. Education on iron and B12 deficiency will be provided. Vital Signs/Physical Exam: Temp Pulse Resp BP Pulse Ox 97.8 F 76 16 126/75 97 06/30/20 08:00 06/30/20 08:00 06/30/20 08:00 06/30/20 08:00 06/30/20 08:00 General: Alert, In no apparent distress, Oriented x3, Cooperative HEENT: Atraumatic Neck: Supple Respiratory: Clear to auscultation bilaterally, Normal air movement Cardiovascular: Normal pulses, Regular rate/rhythm Gastrointestinal: Normal bowel sounds, Soft and benign, Non-distended, Other (Postsurgical changes noted) Neurological: Normal speech, Normal strength at 5/5 x4 extr, Normal tone, Normal affect Laboratory Data at Discharge: WBC 12.6 K/uL (4.3-10.9) H D 06/30/20 07:00 Hgb 8.0 g/dL (12.0-15.0) L 06/30/20 07:00 Hct 26.6 % (36.0-45.0) L 06/30/20 07:00 Plt Count 266 K/uL (152-406) 06/30/20 07:00 Sodium 139 mmol/L (136-145) 06/30/20 05:23 Potassium 4.1 mmol/L (3.5-5.1) 06/30/20 05:23 BUN 4 mg/dL (7-18) L 06/30/20 05:23 Creatinine 0.59 mg/dL (0.55-1.3) 06/30/20 05:23 Glucose 111 mg/dL (74-106) H 06/30/20 05:23 Magnesium 1.9 mg/dL (1.8-2.4) 06/29/20 03:36 Total Bilirubin 0.4 mg/dL (0.2-1.0) 06/28/20 14:00 AST 15 U/L (15-37) 06/28/20 14:00 ALT 19 U/L (12-78) 06/28/20 14:00 Alkaline Phosphatase 52 U/L (45-117) 06/28/20 14:00 Lipase 108 U/L (73-393) 06/28/20 14:00 Home Medications: Ciprofloxacin HCl [Cipro 500 MG Tablet] 500 mg PO BID #20 tab 06/30/20 Ferrous Sulfate [Iron] 325 mg PO BID #60 tablet 06/30/20 RX: Cyanocobalamin [Vitamin B-12*] 1,000 mcg PO DAILY #90 tab 06/30/20 RX: Famotidine [Pepcid*] 20 mg PO BID #60 tab 06/30/20 New Medications: Ciprofloxacin HCl [Cipro 500 MG Tablet] 500 mg PO BID #20 tab Ferrous Sulfate [Iron] 325 mg PO BID #60 tablet RX: Famotidine [Pepcid*] 20 mg PO BID #60 tab RX: Cyanocobalamin [Vitamin B-12*] 1,000 mcg PO DAILY #90 tab Patient Discharge Instructions: Patient to establish care with a PCP. Patient presented with abdominal pain, nausea and vomiting. Patient found to have acute cholecystitis with 1.6 cm gallstone within the neck of the gallbladder. Patient was admitted for further evaluation and treatment. Patient was seen and evaluated by surgery. Surgical intervention was required and recommended. Patient had laparoscopic cholecystectomy. Patient tolerated procedure well. Post operatively, patient without significant pain and tolerating diet. At discharge patient will continue with Cipro 500 mg 1 pill twice daily for 10 days as recommended by surgery. Surgery will provide pain medication for the patient to be use as needed. No heavy lifting, pushing or pulling. Postoperative care will be provided. Wound care(May shower in am, Keep wounds clean and dry) as recommended by surgery. Patient may return to work on Sunday. She may continue with light duty. Recommend follow up with surgery within 1 week to follow up this hospitalization and continue her care. Patient was found to be anemic. Hemoglobin stable. Patient found to have iron and B12 deficiency. Patient denied any melena, rectal bleeding or heavy periods. This may be diet related verses GERD. Patient was given IV iron and B12 supplementation. Hemoglobin stable at 8.0. At discharge patient will continue with iron 325 mg 1 pill twice daily and vitamin-B 12 1000 mg daily. Recommend to recheck lab-CBC in 2-4 weeks to monitor stability. Patient will also be started on Pepcid 20 mg 1 pill twice daily for suspected GERD. Recommendation is for the patient to see GI as an outpatient to further evaluate her anemia. Patient will require EGD and colonoscopy. 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 Patient may require stool softener as iron can cause constipation. Recommend with her weeks to further monitor. Lifestyle modification education provided. Education on iron/B12 deficiency anemia, GERD will be provided. Diet: Regular Activity: No lifting more than 10 lbs Followup: Lowell Coleman MD [ACTIVE - CAN ADMIT] - 1 Week JASBIR DICKSON [Primary Care Provider] - Time spent managing pt's care (in minutes): 55
--- NOTE | 2020-06-30 09:33 | PN ---
Date of Progress Note: 06/30/2020 Subjective: Patient is awake, alert, tolerating diet. Complaining of a headache. Objective: Vital Signs: Stable. Afebrile. Abdomen: Benign. Laboratory Data: H and H are stable. Assessment: Status post laparoscopic cholecystectomy for acute cholecystitis and cholelithiasis. Plan: Patient cleared from Surgery standpoint for discharge. Followup in my office in 1 week. Disc harge instructions given. Cipro for 10 days. Plan of care discussed with Dr. Law. /MODL Voice ID: [id number] Report ID: [id number]
== END 2020-06-30 10:30 | disposition home or self-care (01) | DRG 419 ==
LOC: ER 10:59 → ERHOLD 15:54 → 2ND 18:35 → OBSVTOIN 06-29 08:35
PROVIDERS: ADMIT Family Medicine; ATTEND Family Medicine
PROC: 0FT44ZZ Resection of Gallbladder, Percutaneous Endoscopic Approach (ICD-10-PCS; principal; 2020-06-29 09:30)
DX: K80.00 Calculus of gallbladder with acute cholecystitis without obstruction (principal); D50.9 Iron deficiency anemia, unspecified; D51.9 Vitamin B12 deficiency anemia, unspecified; F17.200 Nicotine dependence, unspecified, uncomplicated; E66.9 Obesity, unspecified; Z20.822 Contact with and (suspected) exposure to COVID-19; Z68.39 Body mass index [BMI] 39.0-39.9, adult; Z28.21 Immunization not carried out because of patient refusal
CPT/HCPCS: 36415; 76705; 80048; 80076; 81003; 81015; 81025; 82607; 82728; 83540; 83690; 83735; 84466; 85014; 85018; 85025; 86850; 86870; 86900; 86901; 86922; 87040; 87086; 87088; 88304; 94010; 96365; 96367; 96375; 99285; J0744; J1100; J1170; J2250; J2270; J2370; J2405; J2704; J2710; J2916; J3010; J3420; J7042; J7120; U0003

== ENCOUNTER 2020-11-18 10:40 | Emergency (ER) | payer SELFPAY ==
--- NOTE | 2020-11-18 11:17 | ER ---
Nurse's Notes [facility] Name: Robyn Lueng Age: 30 yrs Sex: Female : 1990 Arrival Date: 11/18/2020 Time: 10:43 Bed 14 Private MD: Diagnosis: Otitis externa in other diseases classified elsewhere, left ear Presentation: 11/18 10:46 Chief complaint: Patient states: over the past week since last Sunday i have had really tw2 bad sinus, cough, throat sore, i went to [facility] Sunday, they didn't run any test, the dr told me a sinus infection. both of my ears are clogged. he told me i had an ear infection, he gave me steroids and abx, i am not getting better, now my ears are painful. Coronavirus screen: runny nose, ear pain Client presents with at least one sign or symptom that may indicate coronavirus-19. Standard/surgical mask placed on the client. Provider contacted for isolation considerations. Ebola Screen: Patient denies travel to an Ebola-affected area in the 21 days before illness onset. Initial Sepsis Screen: Does the patient meet any 2 criteria? No. Patient's initial sepsis screen is negative. Does the patient have a suspected source of infection? No. Patient's initial sepsis screen is negative. Risk Assessment: Do you want to hurt yourself or someone else? Patient reports no desire to harm self or others. Onset of symptoms was November 18, 2020. 10:46 Method Of Arrival: Ambulatory tw2 10:46 Acuity: EFRAIN 4 tw2 Triage Assessment: 10:48 General: Appears in no apparent distress. obese, well groomed, Behavior is calm, tw2 cooperative, appropriate for age. Pain: Denies pain. EENT: Reports nasal congestion nasal discharge pain. 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 - Social history:: Smoking status: . Screenin:56 Abuse screen: Denies threats or abuse. Nutritional screening: No deficits noted. tw2 Tuberculosis screening: No symptoms or risk factors identified. Fall Risk None identified. Vital Signs: 10:46 BP 124 / 81; Pulse 93; Resp 17; Temp 97.9(TE); Pulse Ox 98% on R/A; Pain 6/10; tw2 ED Course: 10:43 Patient arrived in ED. mr 10:44 Peg Francisco, RN is Primary Nurse. tr6 10:46 Bed in low position. Call light in reach. tw2 10:48 Triage completed. tw2 10:48 Max Valladares PA is PHCP. cp 10:48 Ricky Mejia MD is Attending Physician. cp 10:48 Arm band placed on. tw2 Administered Medications: No medications were administered Outcome: 11:16 Discharge ordered by . cp 11:49 Patient left the ED. tr6 Signatures: Isamar Gordon mr Max Valladares PA PA cp Wise, Tara, RN RN tw2 Peg Francisco, SAIDA RN tr6
--- NOTE | 2020-11-18 11:17 | EDPHYS ---
Physician Documentation [facility] Name: Robyn Leung Age: 30 yrs Sex: Female : 1990 Arrival Date: 11/18/2020 Time: 10:43 Bed 14 Private MD: ED Physician Ricky Mejia HPI: 11/18 11:09 This 30 yrs old Female presents to ER via Ambulatory with complaints of Ear cp Pain. 11:09 The patient presents with pain, tenderness. The complaints affect the left ear. Onset: cp The symptoms/episode began/occurred 3 day(s) ago, and became worse today. Associated signs and symptoms: Pertinent negatives: fever, sinus trouble, sore throat. Patient reports symptoms started with cough, sinus congestion last week. Went to [facility] 3 days ago and was prescribed Z-mary jane and medrol dose mary jane. Reports increased left ear pain today. 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 - Social history:: Smoking status: . ROS: 11:11 Constitutional: Negative for body aches, chills, fever, poor PO intake. cp 11:11 ENT: Positive for ear pain, Negative for drainage from ear(s). 11:11 Skin: Negative for rash. 11:11 Neuro: Negative for headache. 11:11 All other systems are negative. Exam: 11:13 Head/Face: Normocephalic, atraumatic. cp 11:13 Constitutional: The patient appears in no acute distress, alert, awake, non-toxic, well developed, well nourished. 11:13 Eyes: Periorbital structures: appear normal, Conjunctiva: normal, no exudate, no injection, Lids and lashes: appear normal, bilaterally. 11:13 ENT: External ear(s): pain with movement, that is moderate, of the left ear canal, Ear canal(s): erythema, that is minimal, of the left canal, TM's: dullness, bilaterally, Nose: is normal, Posterior pharynx: Airway: no evidence of obstruction, patent. 11:13 Chest/axilla: Inspection: normal. 11:13 Cardiovascular: Rate: normal. 11:13 Respiratory: the patient does not display signs of respiratory distress, Respirations: normal, no use of accessory muscles, no retractions. 11:13 Skin: no rash present. Vital Signs: 10:46 BP 124 / 81; Pulse 93; Resp 17; Temp 97.9(TE); Pulse Ox 98% on R/A; Pain 6/10; tw2 MDM: 10:50 Patient medically screened. cp 11:10 Differential diagnosis: otitis media, otitis externa, ruptured TM, foreign body, cp cerumen impaction, acute sinusitis. 11:15 Data reviewed: vital signs, nurses notes. cp 11:15 Counseling: I had a detailed discussion with the patient and/or guardian regarding: the cp historical points, exam findings, and any diagnostic results supporting the discharge/admit diagnosis, to return to the emergency department if symptoms worsen or persist or if there are any questions or concerns that arise at home. Administered Medications: No medications were administered Disposition: 11:50 Chart complete. cp 13:58 Co-signature as Attending Physician, Ricky Mejia MD I agree with the assessment and kdr plan of care. Disposition: 11/18/20 11:16 Discharged to Home. Impression: Otitis externa in other diseases classified elsewhere, left ear. - Condition is Stable. - Discharge Instructions: Otitis Externa. - Prescriptions for Ciprodex 0.3- 0.1 % Otic Drops, Suspension - instill 4 drop by OTIC route every 12 hours for 7 days , for ears ONLY; 1 Container. - Medication Reconciliation Form, Thank You Letter, Antibiotic Education, Prescription Opioid Use, Work release form form. - Follow up: Private Physician; When: 2 - 3 days; Reason: Worsening of condition. - Problem is new. - Symptoms have improved. Signatures: Ricky Mejia MD MD [facility] Max Valladares PA PA cp Iesha Funez RN RN tw2 Peg Francisco RN RN tr6 Corrections: (The following items were deleted from the chart) 11:49 11:16 11/18/2020 11:16 Discharged to Home. Impression: Otitis externa in other diseases tr6 classified elsewhere, left ear. Condition is Stable. Forms are Medication Reconciliation Form, Thank You Letter, Antibiotic Education, Prescription Opioid Use. Follow up: Private Physician; When: 2 - 3 days; Reason: Worsening of condition. Problem is new. Symptoms have improved. cp
[2020-11-18 12:13] VITALS: BP 124/81; TEMP 97.9; O2SAT 98
== END 2020-11-18 11:49 | disposition home or self-care (01) ==
LOC: ER 10:40
DX: H60.92 Unspecified otitis externa, left ear (principal); Z88.0 Allergy status to penicillin
CPT/HCPCS: 99281

== ENCOUNTER 2020-11-22 09:25 | Emergency (ER) | payer SELFPAY ==
[2020-11-22 10:18] LABS: Absolute Lymphocytes (CBC) 2.4 K/uL (0.7-4.9); Basophils % 0.7 % (0-1.3); Hematocrit 38.8 % (36.0-45.0); Lymphocytes % 18.5 % (15.3-44.8); MPV 8.5 fL (7.6-11.3); RBC Red Blood Cell Count 4.91 M/uL (3.86-4.86)
[2020-11-22 10:34] LABS: Urine Blood Negative (Negative); Urine Glucose Negative (Negative); Urine Protein 1+ (Negative); Urine Specific Gravity >=1.030 (1.005-1.030); Urine pH 5.5 (5.0-7.0)
[2020-11-22 10:35] LABS: BUN Blood Urea Nitrogen 10 mg/dL (7-18); Bicarbonate 27 mmol/L (21-32); Glucose Level 100 mg/dL (74-106); Potassium 3.8 mmol/L (3.5-5.1); Sodium Level 141 mmol/L (136-145)
[2020-11-22 10:36] LABS: ALT/SGPT 41 U/L (12-78); AST/SGOT 18 U/L (15-37); Albumin 3.6 g/dL (3.4-5.0); Alkaline Phosphatase 69 U/L (45-117); Bilirubin Direct 0.1 mg/dL (0-0.2); Bilirubin Total 0.5 mg/dL (0.2-1.0); Lipase 69 U/L (73-393)
[2020-11-22] MEDS ORDERED: ONDANSETRON 4 MG/2 ML VIAL ONE (10:40)
[2020-11-22] MEDS ORDERED: NA CHLORIDE 0.9% 1,000 ML ONE (10:40)
--- NOTE | 2020-11-22 11:20 | ER ---
Nurse's Notes [facility] Name: Robyn Leung Age: 30 yrs Sex: Female : 1990 Arrival Date: 11/22/2020 Time: 09:28 Bed 16 Private MD: Diagnosis: Nausea and vomiting Presentation: 11/22 09:33 Chief complaint: Patient states: nausea and vomiting that began last night after ss drinking alcohol. Pt reports that this is worse than a hang over. Was also diagnosed in ER with an ear infection and reports that her ear is still clogged. Coronavirus screen: Client denies travel out of the [place] in the last 14 days. Ebola Screen: Patient denies exposure to infectious person. Patient denies travel to an Ebola-affected area in the 21 days before illness onset. Initial Sepsis Screen: Does the patient meet any 2 criteria? No. Patient's initial sepsis screen is negative. Does the patient have a suspected source of infection? No. Patient's initial sepsis screen is negative. Risk Assessment: Do you want to hurt yourself or someone else? Patient reports no desire to harm self or others. Onset of symptoms was November 21, 2020. 09:33 Method Of Arrival: Ambulatory ss 09:33 Acuity: EFRAIN 3 ss Historical: - Allergies: 09:36 PENICILLINS; ss - Home Meds: 09:36 None [Active]; ss - PMHx: 09:36 None; ss - PSHx: 09:36 Tubal ligation; Cholecystectomy; ss - Immunization history:: Adult Immunizations up to date. - Social history:: Smoking status: Patient denies any tobacco usage or history of. Screenin:15 Abuse screen: Denies threats or abuse. Denies injuries from another. Nutritional tr6 screening: No deficits noted. Tuberculosis screening: No symptoms or risk factors identified. Fall Risk None identified. Assessment: 10:00 General: Appears uncomfortable, obese, Behavior is calm, cooperative, appropriate for tr6 age. Pain: Denies pain. Neuro: No deficits noted. Cardiovascular: No deficits noted. Respiratory: No deficits noted. GI: Abdomen is round non-distended, obese, Reports nausea, vomiting. : No deficits noted. EENT: No deficits noted. Derm: No deficits noted. Musculoskeletal: No deficits noted. 11:15 Reassessment: PO challenge. tr6 Vital Signs: 09:33 BP 141 / 99; Pulse 114; Resp 19; Temp 98.2(TE); Pulse Ox 98% on R/A; Weight 104.33 kg; ss Height 5 ft. 0 in. (152.40 cm); Pain 0/10; 11:02 BP 137 / 103; Pulse 91; Resp 18; Pulse Ox 98% on R/A; tr6 09:33 Body Mass Index 44.92 (104.33 kg, 152.40 cm) ED Course: 09:28 Patient arrived in ED. mr 09:29 Claudia Boudreaux FNP-C is [facility]. kb 09:29 Max Main MD is Attending Physician. kb 09:35 Triage completed. ss 09:36 Arm band placed on right wrist. ss 09:56 Peg Francisco, SAIDA is Primary Nurse. tr6 10:43 Inserted saline lock: 18 gauge in left antecubital area, using aseptic technique. Blood tr6 collected. 11:15 Patient has correct armband on for positive identification. Bed in low position. Call tr6 light in reach. Side rails up X 1. Pulse ox on. NIBP on. Door closed. Noise minimized. Warm blanket given. 11:15 No provider procedures requiring assistance completed. tr6 12:34 IV discontinued, intact, bleeding controlled, No redness/swelling at site. Pressure tr6 dressing applied. Administered Medications: 10:22 Drug: NS 0.9% 1000 ml Route: IV; Rate: 1000 ml; Site: left antecubital; tr6 10:43 Drug: Zofran (Ondansetron) 4 mg Route: IVP; Site: left antecubital; tr6 11:55 Drug: Phenergan (promethazine) 12.5 mg Route: IVP; Site: left antecubital; tr6 Outcome: 11:20 Discharge ordered by . kb 12:34 Discharged to home ambulatory. tr6 12:34 Condition: stable 12:34 Discharge instructions given to patient, Instructed on discharge instructions, follow up and referral plans. no drinking with medication, medication usage, safety practices, Demonstrated understanding of instructions, follow-up care, medications, Prescriptions given X 1. 12:34 Patient left the ED. tr6 Signatures: Claudia Boudreaux FNP-C FNP-Ckb Rivera, Mary mr Jalyn Child, RN RN ss Peg Francisco, RN RN tr6
--- NOTE | 2020-11-22 11:20 | EDPHYS ---
Physician Documentation [facility] Name: Robyn Leung Age: 30 yrs Sex: Female : 1990 Arrival Date: 11/22/2020 Time: 09:28 Bed 16 Private MD: ED Physician Max Main HPI: 11/22 11:46 This 30 yrs old Female presents to ER via Ambulatory with complaints of kb Nausea, Vomiting, Sore Throat. 11:42 Pt states she drank a lot of alcohol yesterday and has had nausea and vomiting all kb night. States this is the worse hangover she's had. Now complaining of pain in throat from vomiting. States she is also having fullness in left ear. Was diagnosed with otitis media and externa last week and has one more day of antibiotics. 11:46 The patient presents to the emergency department with nausea, vomiting. Onset: The kb symptoms/episode began/occurred last night. Possible causes: etoh consumption. The symptoms are aggravated by nothing. The symptoms are alleviated by nothing. Associated signs and symptoms: Pertinent positives: nausea, vomiting, Pertinent negatives: abdominal pain. Severity of symptoms: At their worst the symptoms were moderate in the emergency department the symptoms are unchanged. The patient has not experienced similar symptoms in the past. The patient has not recently seen a physician. Historical: - Allergies: 09:36 PENICILLINS; ss - Home Meds: 09:36 None [Active]; ss - PMHx: 09:36 None; ss - PSHx: 09:36 Tubal ligation; Cholecystectomy; ss - Immunization history:: Adult Immunizations up to date. - Social history:: Smoking status: Patient denies any tobacco usage or history of. ROS: 11:39 Constitutional: Negative for fever, chills, and weight loss. kb 11:39 ENT: Positive for sore throat, fullness to left ear. 11:39 Abdomen/GI: Positive for nausea and vomiting, Negative for abdominal pain. 11:39 All other systems are negative. Exam: 11:41 Constitutional: This is a well developed, well nourished patient who is awake, alert, kb and in no acute distress. Head/Face: Normocephalic, atraumatic. Cardiovascular: Regular rate and rhythm with a normal S1 and S2. No gallops, murmurs, or rubs. No pulse deficits. Respiratory: Respirations even and unlabored. No increased work of breathing, no retractions or nasal flaring. Abdomen/GI: Soft, non-tender. No distention Skin: Warm, dry with normal turgor. Normal color. MS/ Extremity: Pulses equal, no cyanosis. Neurovascular intact. Full, normal range of motion. Neuro: Awake and alert, GCS 15, oriented to person, place, time, and situation. Moves all extremities. Normal gait. Psych: Awake, alert, with orientation to person, place and time. Behavior, mood, and affect are within normal limits. 11:41 ENT: External ear(s): are unremarkable, Ear canal(s): are normal, TM's: are normal, Nose: is normal, Mouth: is normal, Posterior pharynx: is normal. Vital Signs: 09:33 BP 141 / 99; Pulse 114; Resp 19; Temp 98.2(TE); Pulse Ox 98% on R/A; Weight 104.33 kg; ss Height 5 ft. 0 in. (152.40 cm); Pain 0/10; 11:02 BP 137 / 103; Pulse 91; Resp 18; Pulse Ox 98% on R/A; tr6 09:33 Body Mass Index 44.92 (104.33 kg, 152.40 cm) ss MDM: 09:37 Patient medically screened. kb 11:19 Data reviewed: vital signs, nurses notes. Data interpreted: Pulse oximetry: on room air kb is 98 %. Interpretation: normal. Counseling: I had a detailed discussion with the patient and/or guardian regarding: the historical points, exam findings, and any diagnostic results supporting the discharge/admit diagnosis, lab results, the need for outpatient follow up, a family practitioner, to return to the emergency department if symptoms worsen or persist or if there are any questions or concerns that arise at home. 11/22 09:45 Order name: Basic Metabolic Panel; Complete Time: 10:40 kb 11/22 09:45 Order name: CBC with Diff; Complete Time: 10:19 kb 11/22 09:45 Order name: Hepatic Function; Complete Time: 10:40 kb 11/22 09:45 Order name: Lipase; Complete Time: 10:40 kb 11/22 09:45 Order name: ETOH Level; Complete Time: 10:40 kb 11/22 10:33 Order name: Urine Dipstick-Ancillary; Complete Time: 10:34 EDMN 11/22 09:45 Order name: IV Saline Lock; Complete Time: 09:57 kb 11/22 09:45 Order name: Labs collected and sent; Complete Time: 09:57 kb 11/22 10:44 Order name: Vital Signs; Complete Time: 11:03 kb 11/22 10:44 Order name: PO challenge; Complete Time: 11:03 kb 11/22 10:48 Order name: Urine --Ancillary (enter results); Complete Time: 12:01 bd Administered Medications: 10:22 Drug: NS 0.9% 1000 ml Route: IV; Rate: 1000 ml; Site: left antecubital; tr6 10:43 Drug: Zofran (Ondansetron) 4 mg Route: IVP; Site: left antecubital; tr6 11:55 Drug: Phenergan (promethazine) 12.5 mg Route: IVP; Site: left antecubital; tr6 Disposition: 11/23 07:09 Co-signature as Attending Physician, Max Main MD I agree with the assessment and stacy plan of care. Disposition: 11/22/20 11:20 Discharged to Home. Impression: Nausea and vomiting. - Condition is Stable. - Discharge Instructions: Nausea and Vomiting, Adult, [id number], Dental Work and . - Prescriptions for Zofran 4 mg Oral Tablet - take 1 tablet by ORAL route every 6 hours As needed; 20 tablet. - Medication Reconciliation Form, Thank You Letter, Antibiotic Education, Prescription Opioid Use, Work release form form. - Follow up: Emergency Department; When: As needed; Reason: Worsening of condition. Follow up: Private Physician; When: 2 - 3 days; Reason: Recheck today's complaints, Continuance of care, Re-evaluation by your physician. Signatures: Dispatcher [employer] Claudia Younger, LAB REP-C LAB REP-Max Snow MD MD cha Smirch, Shelby, RN RN Peg Emanuel RN RN tr6 Corrections: (The following items were deleted from the chart) 11/22 12:34 11:20 11/22/2020 11:20 Discharged to Home. Impression: Nausea and vomiting. Condition tr6 is Stable. Forms are Medication Reconciliation Form, Thank You Letter, Antibiotic Education, Prescription Opioid Use. Follow up: Emergency Department; When: As needed; Reason: Worsening of condition. Follow up: Private Physician; When: 2 - 3 days; Reason: Recheck today's complaints, Continuance of care, Re-evaluation by your physician. kb
[2020-11-22 12:01] LABS: Urine Specific Gravity/Preg >1.030 (1.005-1.030)
[2020-11-22] MEDS ORDERED: NA CHLORIDE 0.9% 50 ML ONE (12:07)
[2020-11-22] MEDS ORDERED: PROMETHAZINE INJ 25 MG/ML AMP ONE (12:07)
[2020-11-22 12:48] VITALS: TEMP 98.2; O2SAT 98
[2020-11-22 12:49] VITALS: BP 137/103
== END 2020-11-22 12:34 | disposition home or self-care (01) ==
LOC: ER 09:25
DX: R11.2 Nausea with vomiting, unspecified (principal); Z88.0 Allergy status to penicillin
CPT/HCPCS: 36415; 80048; 80076; 80320; 81003; 81025; 83690; 85025; 96374; 96375; 99284; J2405; J2550; J7030

== ENCOUNTER 2021-10-19 21:42 | Emergency (ER) | payer SELFPAY ==
--- OUTSIDE RECORDS SUMMARY | 2021-10-19 21:45 | XMS REPORT | Continuity of Care Document ---
:1990 Author Organization [facility] t Address [address] [place] [address] Care Team Providers Name Role Phone PCP, DOES NOT HAVE A Primary Care Physician Unavailable NEVA Attending Clinician Unavailable Anand SANTANA Attending Clinician Shubham KANG CRNA Attending Clinician Jasmin Johnson MD Attending Clinician NEVA Admitting Clinician Unavailable Problems Condition Condition Condition Status Onset Resolution Last Treating Co mments Source Name Details Category Date Date Treatment Clinician Date Acute Acute Disease Active Univers appendicit appendicit 5-06 it y of is is 00:00: [address] Branch Obesity Obesity Disease Active Univers (BMI (BMI 5-06 ity of 30-39.9) 30-39.9) 00:00: [address] Well woman Well woman Disease Active U sasha exam exam 12-07 ity of 00:00: [place] [address] Medical Branch History of History of Disease Active U nivari bilateral bilateral 12-07 ity of tubal tubal 00:00: [place] ligation ligation 00 Medica l Branch Encounter Encounter Disease Active Uni vers for for 12-07 ity of surveillan surveillan 00:00: Raj encarnacion ce of ce of 00 Medical contracept contracept Br anch honorio, honorio, unspecifie unspecifie d d contracept contracept issac issac BMI BMI Disease Active Univers 45.0-49.9, 45.0-49.9, 6- it y of adult adult 00:00: [place] 00 Medical Branch Class 3 Class 3 Disease Active Univers severe severe 12-07 ity of obesity obesity 00:00: [place] with body with body 00 Medi vivek mass index mass index Br anch (BMI) of (BMI) of 45.0 to 45.0 to 49.9 in 49.9 in adult, adult, unspecifie unspecifie d obesity d obesity type, type, unspecifie unspecifie d whether d whether serious serious comorbidit comorbidit y present y present Blister of Blister of Disease Active U nivers lip lip 12-07 ity of 00:00: [place] 00 Medical Branch Allergies, Adverse Reactions, Alerts Allergy Allergy Status Severity Reaction(s) Onset Inactive Treating Comm ents Source Name Type Date Date Clinician PENICILL Drug Active Rash Univers INS Class 12-07 ity of 00:00: [place] [id number] Medical Branch Penicill Propensi Active Rash Univer s ins ty to 12-07 ity of adverse 00:00: [place] reaction Medical s Branch Social History Social Habit Start Date Stop Date Quantity Comments Source History SDOH University o f Alcohol Frequency [place] M edical Branch History SDOH University o f Alcohol Std [place] Medical Drinks Branch History SDOH University o f Alcohol Binge [place] Medic al Branch Alcohol intake 2021-10-15 2021-10-15 Current drinker Unive rsity of 00:00:00 00:00:00 of alcohol [place] Medical (finding) Branch Exposure to 2021-10-04 2021-10-14 Not sure [facility] SARS-CoV-2 00:00:00 15:37:00 [facility] (event) Branch Tobacco use and 2020-12-07 2020-12-07 Never used Universit y of exposure 00:00:00 00:00:00 [facility] Alcohol Comment 2020-12-07 2020-12-07 socially Universit y of 00:00:00 00:00:00 [facility] Sex Ass[birth year] At [birth year] Universit y of 00:00:00 00:00:00 [facility] Smoking Status Start Date Stop Date Source Never smoker [facility] Medical Branch Medications Ordered Filled Start Stop Current Ordering Indication Dosage Frequency Signature Comments Components Source Medication Medication Date Date Medication? Clinician (SIG) Name Name CYANOCOBALA Yes Inject as Univers MIN, 5-09 directed. ity of VITAMIN 05:56: [place] Medical INJECTION Branch CYANOCOBALA Yes Inject as Univers MIN, 5-09 directed. ity of VITAMIN 05:56: [facility] Medical INJECTION Branch levoFLOXaci 2021- No 750mg 750 mg, IV Univers n in D5W 10-16 Piggyback, ity of (LEVAQUIN) 01:00: 00:56 Q24H ABX, [place] 750 mg/150 00 :58 2 doses, Medic al mL First dose Branch Piggyback (after 750 mg last reorder) on 10/15/21 at 2000, Last dose on 10/16/21 at 1999, Administer over 90 Minutes, 150 mL
Reas on for Anti-Infec tive: Documented Infection< br>Documen crispin Infection Site: Abdominal< br>Duratio n of Therapy: 7 days ibuprofen No 600mg 600 mg, Uni vers (IBU) 10-15 Oral, Q6H, ity of tablet 600 23:00: 00:56 First dose [place] mg 00 :58 on [facility] Medical 10/15/21 at Branch 1800, Until Discontinu ed, Routine HYDROcodone 2021- No 1{tbl} 1 tablet, Univers -acetaminop 10-15- Oral, ity of hen (NORCO 18:08: 00:56 Q6HPRN, Thad as 5) 5-325 mg 07 :58 Starting Medi vivek tablet 1 on [facility] tablet 10/15/21 at 1308, Until 10/15/21 at 1956, Routine, Pain (scale 4-6) phentermine Yes 37.5mg Take 37.5 Univers 37.5 mg 5-07 mg by ity of capsule 17:56: mouth [place] 58 every Medical morning. Branch ferrous Yes Take by Univer s sulfate 5-07 mouth. ity of (IRON ORAL) 17:56: [place] 58 Medical Branch cyanocobala Yes Take by Un karime min, 5-07 mouth. ity of vitamin 17:56: [place] Medical (VITAMIN Branch B12 ORAL) phentermine Yes 37.5mg Take 37.5 Univers 37.5 mg 5-07 mg by ity of capsule 17:56: mouth [place] 58 every Medical morning. Branch ferrous Yes Take by Univer s sulfate 5-07 mouth. ity of (IRON ORAL) 17:56: [place] 58 Medical Branch cyanocobala Yes Take by Un karime min, 5-07 mouth. ity of vitamin 17:56: [place] B-12, 58 Medical (VITAMIN Branch B12 ORAL) lactated 2021- No 1000mL at 75 Unive rs ringers IV 10-15-08 mL/hr, ity of infusion 17:30: 00:56 1,000 mL, Thad as 1,000 mL 00 :58 IV Medical Infusion, Branch CONTINUOUS , Starting on 10/15/21 at 1230, Until 10/15/21 at 1956, Routine, PACU FENTanyl PF 2021- No 25ug 25 mcg, Un karime (SUBLIMAZE 10-15 Slow IV ity o f (PF)) 17:29: 18:09 Push, [place] injection 07 :36 Q5MIN PRN, Medi vivek 25 mcg 4 doses, Branch Starting on 10/15/21 at 1229, Until 10/15/21 at 1309, Routine, Pain (scale 4-6), PACU sugammadex 2021- No IV Push, Un karime (BRIDION) 10-15 ONCE INTRA ity of injection 17:08: 17:28 PROCEDURE, [place] 00 :50 Starting Medical on Sat Branch 10/15/21 at 1208, Until 10/15/21 at 1228, Routine, Intra-op ondansetron 2021- No Slow IV Un karime (ZOFRAN 10-15 Push, ONCE ity o f (PF)) 16:55: 17:28 INTRA [place] injection 00 :50 PROCEDURE, Medi vivek Starting Branch on 10/15/21 at 1155, Until 10/15/21 at 1228, Routine, Intra-op ketorolac 2021- No Slow IV Univ ers (TORADOL) 10-15 Push, ONCE ity of injection 16:55: 17:28 INTRA [place] 00 :50 PROCEDURE, Medical Starting Branch on 10/15/21 at 1155, Until 10/15/21 at 1228, Routine, Intra-op acetaminoph 2021- No IV Unive rs en ADULT 10-15 Infusion, ity o f [facility] 16:35: 17:28 Administer [place] injection 00 :50 over 15 Medical Minutes, Branch ONCE INTRA PROCEDURE, Starting on 10/15/21 at 1135, Until 10/15/21 at 1228, Routine, Intra-op bupivacaine 2021- No PRN, Unive rs -epinephrin 10-15 Starting ity of e-pf 16:24: 17:20 on [facility] (SENSORCAIN 00 :32 10/15/21 at Med ical E 1124, Branch W/EPINEPHRI Intra-op NE) 0.25 %-1:200,000 30 mL, lidocaine 1% (PF) (XYLOCAINE) 30 mL sodium 2021- No PRN, Univers chloride 10-15 Starting ity of 0.9 % 16:24: 17:20 on [facility] irrigation 00 :32 10/15/21 at Medi vivek solution 1124, Branch Until 10/15/21 at 1220, Intra-op dexamethaso 2021- No IV Push, U nivers ne 10-15 ONCE INTRA ity of (DECADRON 16:05: 17:28 PROCEDURE, [place] PHOSPHATE) 00 :50 Starting Medic al injection on [facility] Branch 10/15/21 at 1105, Until 10/15/21 at 1228, Routine, Intra-op rocuronium 2021- No IV Push, Un karime (ZEMURON) 10-15 ONCE INTRA ity of injection 15:59: 17:28 PROCEDURE, [place] 00 :50 Starting Medical on Sat Branch 10/15/21 at 1059, Until 10/15/21 at 1228, Routine, Intra-op propofoL IV 2021- No IV Unive rs infusion 10-15 Infusion, ity o f 15:59: 17:28 ONCE INTRA [place] 00 :50 PROCEDURE, Medical Starting Branch on 10/15/21 at 1059, Until 10/15/21 at 1228, Routine, Intra-op lidocaine 2021- No Slow IV Univ ers 1% 10-15 Push, ONCE ity of (XYLOCAINE) 15:59: 17:28 INTRA [place] 100 mg/10 00 :50 PROCEDURE, Medi vivek mL (1 %) Starting Branch injection on 10/15/21 at 1059, Until 10/15/21 at 1228, Routine, Intra-op FENTanyl PF 2021- No Epidural, Univers (SUBLIMAZE 10-15 ONCE INTRA it y of (PF)) 15:59: 17:28 PROCEDURE, [place] injection 00 :50 Starting Medica l on Sat Branch 10/15/21 at 1059, Until 10/15/21 at 1228, Routine, Intra-op midazolam 2021- No IV Push, Uni vers (VERSED) 10-15 ONCE INTRA ity of injection 15:55: 17:28 PROCEDURE, [place] 00 :50 Starting Medical on [facility] Branch 10/15/21 at 1055, Until 10/15/21 at 1228, Routine, Intra-op lactated 2021- No IV Univers ringers IV 10-15 Infusion, ity of infusion 15:55: 17:28 CONTINUOUS [place] 00 :[place] PRN, Medical Starting Branch on 10/15/21 at 1055, Until 10/15/21 at 1228, Routine, Intra-op enoxaparin 2021- No 30mg 30 mg, Univ ers (LOVENOX) 10-15 Subcutaneo ity of injection 14:00: 00:56 us, DAILY, [place] 30 mg 00 :58 First dose Medical on [facility] Branch 10/15/21 at 0900, Until Discontinu ed, Routine docusate 2021- No 100mg 100 mg, Univ ers (COLACE) 10-15 Oral, BID, ity of capsule 100 13:00: 00:56 First dose [place] mg 00 :58 on [facility] Medical 10/15/21 at Branch 0800, Until Discontinu ed, Routine NaCl 0.9% No 1000mL at 125 Uni vers (NS) IV 10-15 mL/hr, IV ity of infusion 06:30: 00:56 Infusion, Thad as 1,000 mL 00 :58 CONTINUOUS Medic al , Starting Branch on 10/15/21 at 0130, Until 10/15/21 at 1955, Routine metroNIDAZO 2021- No 500mg 500 mg, IV Univers LE in NaCl 10-15 Infusion, ity of (iso-os) 06:30: 00:56 Q8H ABX, [place] (FLAGYL 00 :58 First dose Medica l I.V.) RTU (after Branch IV infusion last 500 mg reorder) on 10/15/21 at 0130, Until Discontinu ed, Administer over 75 Minutes, 100 mL
Reas on for Anti-Infec tive: Documented Infection< br>Documen crispin Infection Site: Abdominal< br>Duratio n of Therapy: 7 days lactobacill 2021- No .5mg 0.5 mg, Un karime 10-15 Oral, BID, ity of acidophilus 05:30: 00:56 First dose [place] tablet 0.5 00 :58 on [facility] Medical mg 10/15/21 at Branch 0030, Until Discontinu ed, Routine ondansetron 2021- No 4mg 4 mg, Slow Univers (ZOFRAN 10-15 IV Push, ity of (PF)) 05:26: 00:56 Q6HPRN, [place] injection 4 29 :58 Starting Medi vivek mg on Sat Branch 10/15/21 at 0026, Until 10/15/21 at 1955, Routine, Nausea and Vomiting (N/V) FENTanyl PF 2021- No 50ug 50 mcg, Un karime (SUBLIMAZE 10-15 Slow IV ity o f (PF)) 02:05: 00:56 Push, [place] injection 50 :58 Q4HPRN, Medical 50 mcg Starting Branch on Sun10/14/21 at 2105, Until 10/15/21 at 195, Routine, Pain (scale 7-10) HYDROcodone 2021- No 1{tbl} 1 tablet, Univers -acetaminop 10-15 Oral, ity of hen (NORCO 01:15: 01:16 ONCE, 1 Thad as 5) 5-325 mg 00 :00 dose, On Medi vivek tablet 1 Sun10/14/21 Branc h tablet at 2029, CHRIS levoFLOXaci 2021- No 750mg 750 mg, IV Univers n in D5W 10-15 Piggyback, ity of (LEVAQUIN) 01:15: 01:42 ONCE, 1 [place] 750 mg/150 00 :00 dose, On Medic al mL Sun10/14/21 Branch Piggyback at 2014, 750 mg Administer over 90 Minutes, 150 mL
R westley for Anti-Infec tive: Documented Infection< br>Documen crispin Infection Site: Abdominal< br>Duratio n of Therapy: 7 days metroNIDAZO 2021- No 500mg 500 mg, IV Univers LE in NaCl 10-15 Infusion, ity of (iso-os) 01:15: 03:05 ONCE NOW, Thad as (FLAGYL 00 :00 1 dose, On Medica l I.V.) RTU Sun10/14/21 Bran ch IV infusion at 2014, 500 mg Administer over 75 Minutes, 100 mL
Reas on for Anti-Infec tive: Documented Infection< br>Documen crispin Infection Site: Abdominal& lt;br>Dura tion of Therapy: 7 days ondansetron 2021- No 4mg 4 mg, Slow Univers (ZOFRAN 10-15 IV Push, ity of (PF)) 01:15: 00:06 ONCE, 1 [place] injection 4 00 :00 dose, On Medi vivek mg Sun10/14/21 Branch at 2014, CHRIS morpHINE (4 2021- No 4mg 4 mg, Slow Univers mg/mL) 10-15 IV Push, ity of injection 4 01:15: 00:07 ONCE, 1 [place] mg 00 :00 dose, On Medical Sun10/14/21 Branch at 2014, STAT HYDROcodone 2021- Yes 1{tbl} Take 1 U nivers -acetaminop 10-15 tablet by it y of hen 5-325 00:00: 04:59 mouth [place] mg tablet 00 :00 every 6 Medical (six) Branch hours as needed for Pain (scale 4-6) for up to 7 days. Indication s: cough iopamidol 2021- No [id number] 100mL 100 mL, Univers (ISOVUE 10-14 Intravenou ity o f 370-500 mL) 23:45: 22:44 s, ONCE, 1 [place] injection 00 :00 dose, On Medica l 100 mL Sun10/14/21 Branch at 1845, Routine ketorolac No 30mg 30 mg, Unive rs (TORADOL) 10-14 Slow IV ity of injection 22:30: 21:27 Push, [place] 30 mg 00 :00 ONCE, 1 Medical dose, On Branch Sun10/14/21 at 1730, CHRIS NaCl 0.9% No 1000mL at 999 Uni vers (NS) bolus 10-14 mL/hr, ity of infusion 21:45: 22:49 1,000 mL, Thad as 1,000 mL 00 :00 IV Medical Infusion, Branch ONCE, 1 dose, On Sun10/14/21 at 1645, CHRIS Immunizations Ordered Filled Immunization Date Status Comments [facility] e Immunization Name Name TD 2015-06-11 Completed University 00:00:00 [facility] TD 2015-06-11 Completed [facility] 00:00:00 [facility] Vital Signs Vital Name Observation Time Observation Value Comments Source Heart rate 2021-10-15 18:12:00 88 /min [facility] Respiratory rate 2021-10-15 18:12:00 13 /min [facility] Oxygen saturation in 2021-10-15 18:12:00 100 /min [facility] Arterial blood by [facility] Pulse oximetry Branch Systolic blood 2021-10-15 18:10:00 116 mm[Hg] Univer sity of pressure [facility] Diastolic blood 2021-10-15 18:10:00 63 mm[Hg] Unive rsity of pressure [facility] Body temperature 2021-10-15 17:24:00 36.11 [place] [facility] Body height 2021-10-15 01:00:00 152.4 cm [facility] Body weight 2021-10-15 01:00:00 89.495 kg [facility] BMI 2021-10-15 01:00:00 38.53 kg/m2 [facility] Procedures Procedure Date / Time Performing Clinician Source Performed INTUBATION 2021-10-15 16:01:00 Tabitha Jalloh [facility] LAPAROSCOPIC 2021-10-15 15:39:00 Christin Michel [facility] APPENDECTOMY [facility] PROTHROMBIN TIME / INR 2021-10-15 11:18:00 Joaquin Hooks [facility] URINE CULTURE 2021-10-15 [facility]:30[facility]EL[facility] W 2021-10-14 22:52:28 Lalita Monk [facility] CONTRAST [facility] POCT TEST 2021-10-14 20:50:00 Lalita Monk [facility] PHOSPHORUS 2021-10-14 20:49:00 Joaquin Hooks [facility] LIPASE 2021-10-14 20:49:00 Lacho Lalita [facility] MAGNESIUM 2021-10-14 20:49:00 Neva nancy [facility] THYROID STIMULATING 2021-10-14 20:49:00 Neva nancy [facility] HORMONE [facility] COMP. METABOLIC PANEL 2021-10-14 20:49:00 Lalita Monk [facility] ([id number]) [facility] LIPID PANEL 2021-10-14 20:49:00 Neva nancy [facility] ([id number])(TOTAL [facility] CHOLESTEROL, TRIGLYCERIDES, HDL) CBC WITH DIFF 2021-10-14 20:49:00 Lalita Monk [facility] GLYCOSYLATED HEMOGLOBIN 2021-10-14 20:49:00 Joaquin Hooks [facility] (A1C) [facility] URINALYSIS 2021-10-14 20:49:00 Lalita Monk [facility] N-TERMINAL PRO-BNP 2021-10-14 20:49:00 Joaquin Hooks [facility] CONSENT/REFUSAL FOR 2021-10-14 20:30:28 Doctor Unassigned, No Un [facility] [place] DIAGNOSIS AND TREATMENT Name [facility] HOSPITAL ADMISSION 2021-10-14 05:01:00 Doctor Unassigned, No Uni versity of [place] [facility] Encounters Start End Encounter Admission Attending Care Care Encounter Source Date/Time Date/Time Type Type Clinicians Facility Department ID 2021-10-14 2021-10-15 Outpatient X NEVA [facility] [id number] Univers 15:55:00 17:56:00 ADNAN ity [facility] 2021-10-15 2021-10-15 [facility] [id number] Univers 11:00:00 13:14:00 Christin MENDOZA [id number] i ty [facility] [id number] [place] SUR[place]ICAL [id number] [address] 2021-10-15 2021-10-15 Anesthesia Tabitha Jalloh [facility] [id number] Univers 10:55:00 12:21:00 Event Kenyon Johnson [id number] ity [facility] [id number] [place] SUR[place] [id number] [address] Results Test Description Test Time Test Comments Results Result Comments Source THYROID STIMULATING HORMONE 2021-10-15 15:35:41 Test Item Value Reference Range Interpretation Comme nts TSH (test code = 0393734808) See_Comment [Automated message] The system which generated this result transmitted ref erence range: 0.45 - 4.70 mIU/L. T he reference range was not used to interpret this result as nyasia l/abnormal. Lab Interpretation (test code = Normal 25187-3) [facility] [id number] 15:14:22 Test Item Value Reference Range Interpretation Comments NT-proBNP (test code 26 pg/mL See_Comment [Autom ated = 4929115028) message] The system which generated this result transmitted reference range : <=125. The reference range was not used to interpret this result as normal/abnormal . ASHLEY (test code = ASHLEY) Biotin has been reported to cause a negative bias, interpret results relative to patient's use of biotin. Lab Interpretation Normal (test code = 10829-0) [facility] 15:10:36 Test Item Value Reference Range Interpretation Comments PHOSPHORUS (test code = 8493014307) 3.7 mg/dL 2.5-5.0 Lab Interpretation (test code = Normal 01013-5) [facility]-07 15:10:21 Test Item Value Reference Range Interpretation Comments MAGNESIUM (test code = 5879183128) 1.8 mg/dL 1.7-2.4 Lab Interpretation (test code = Normal 73899-1) [facility] ([id number])(TOTAL CHOLESTEROL, TRIGLYCERIDES, HDL)2021-10-15 15:05:18 Test Item Value Reference Range Interpretation Comments CHOL (test code = 166 mg/dL 120-200 4936090496) HDL (test code = 53 mg/dL >50 2627957105) HDLC RATIO (test code = See_Comment [Au tomated message] 3881438490) The system [employer] generated this result transmit crispin reference range : <=4.5. The refe rence range was not u sed to interpret th is result as normal/abnormal . TRIG (test code = 81 mg/dL 30-170 8320367891) LDL CHOL (test code = 97 mg/dL See_Comment [Auto mated message] 94372-1) The system [employer] generated this result transmit crispin reference range : <=160. The refe rence range was not u sed to interpret th is result as normal/abnormal . VLDL (test code = 16 mg/dL 5-60 7278387643) Lab Interpretation (test Normal code = 62715-6) [facility] (PTT) / [id number] 12:58:11 Test Item Value Reference Range Interpretation Comments PROTIME PATIENT (test See_Comment [Auto mated message] code = 5964-2) The system [employer] generated this result transmitted ref erence range: 12.0 - 1 4.7 Seconds. The re ference range was not u sed to interpret this result as normal/abnor mal. INR (test code = 6301-6) Nor mal INR <1.1; Warfarin Therap eutic range 2.0 to 3. 0 or 2.5 to 3.5, dep ending upon the indica tions. Lab Interpretation (test Normal code = 82150-8) [facility] (A1C)2021-10-15 07:37:30 Test Item Value Reference Range Interpretation Comments HGB A1C (test code = 5.0 % 4.0-5.7 4548-4) ASHLEY (test code = ASHLEY) Reference RangesNormal: <5.7%Prediabetes: 5.7 - 6.4%Diabetes: > 6.5% Lab Interpretation (test Normal code = 91939-7) [facility] METABOLIC PANEL (07823)2021-10-14 21:24:50 Test Item Value Reference Range Interpretation Comments NA (test code = 138 mmol/L 135-145 2730763375) K (test code = 4.4 mmol/L 3.5-5.0 4954860268) CL (test code = 104 mmol/L 98-108 1634108637) CO2 TOTAL (test code 24 mmol/L 23-31 = 6236033022) AGAP (test code = 2-16 3608490350) BUN (test code = 13 mg/dL 7-23 0427678953) GLUCOSE (test code = 84 mg/dL 70-110 7325737727) CREATININE (test code 0.78 mg/dL 0.50-1.04 = 6792800267) TOTAL BILI (test code 0.7 mg/dL 0.1-1.1 = 6599187600) CALCIUM (test code = 9.0 mg/dL 8.6-10.6 0414184940) T PROTEIN (test code 7.0 g/dL 6.3-8.2 = 1729183811) ALBUMIN (test code = 4.3 g/dL 3.5-5.0 2706152867) ALK PHOS (test code = 53 U/L 34-122 3361309049) ALTv (test code = 17 U/L 5-35 1742-6) AST(SGOT) (test code 26 U/L 13-40 = 9165565372) eGFR (test code = mL/min/1.73m2 6559767018) ASHLEY (test code = ASHLEY) Association of Glomerular Filtration Rate (GFR) and Staging of Kidney Disease* + + +- +| GFR (mL/min/1.73 m2) ?| With Kidney Damage ?| ?Without Kidney Damage+ ------+ ----+ ------+| ?>90 ?| ?Stage one ?| ? Normal ?+ -+ + -+| ?60-89 ?| ?Stage two ?| ? Decreased GFR ? + + +- +| ?30-59 ?| ?Stage three ?| ? Stage three ? + + +- +| ?15-29 ?| ?Stage four ? | ? Stage four ?+ -+ + -+| ?<15 (or dialysis) ? ?| ?Stage five ? | ? Stage five ?+ -+ + -+ *Each stage assumes the associated GFR level has been in effect for at least three months. ?Stages 1 to 5, with or without kidney disease, indicate chronic kidney disease. Notes: Determination of stages one and two (with eGFR >59mL/min/1.73 m2) requires estimation of kidney damage for at least three months as defined by structural or functional abnormalities of the kidney, manifested by either:Pathological abnormalities or Markers of kidney damage (including abnormalities in the composition of the blood or urine or abnormalities in imaging tests). [facility] 21:24:30 Test Item Value Reference Range Interpretation Comments LIPASE (test code = 3454236993) 84 U/L 0-220 Lab Interpretation (test code = Normal 44958-5) [facility] Tyler[facility] WITH [id number] 21:15:09 Test Item Value Reference Range Interpretation Comments WBC (test code = See_Comment [Automated message] 6690-2) The system [employer] generated this result transmitted ref erence range: 4.30 - 1 1.10 10*3/?L. The re ference range was not u sed to interpret this result as normal/abnor mal. RBC (test code = See_Comment [Automated message] 789-8) The system [employer] generated this result transmitted ref erence range: 3.93 - 5 .25 10*6/?L. The re ference range was not u sed to interpret this result as normal/abnor mal. HGB (test code = 12.4 g/dL 11.6-15.0 718-7) HCT (test code = 38.0 % 35.7-45.2 4544-3) MCV (test code = 86.4 fL 80.6-95.5 787-2) MCH (test code = 28.2 pg 25.9-32.8 785-6) MCHC (test code = 32.6 g/dL 31.6-35.1 786-4) RDW-SD (test code 42.9 fL 39.0-49.9 = 69812-0) RDW-CV (test code 13.6 % 12.0-15.5 = 788-0) PLT (test code = See_Comment [Automated message] 777-3) The system [employer] generated this result transmitted ref erence range: 166 - 35 8 10*3/?L. The re ference range was not u sed to interpret this result as normal/abnor mal. MPV (test code = 10.9 fL 9.5-12.9 25000-7) NRBC/100 WBC (test See_Comment [Automat ed message] code = 9112445885) The syste m which generated this result transmitted ref erence range: 0.0 - 10 .0 /100 WBCs. The refer ence range was not u sed to interpret this result as normal/abnor mal. NRBC x10^3 (test <0.01 See_Comment [Automated message] code = 2734427525) The syste m which generated this result transmitted ref erence range: 10*3/?L. The reference range was not used to interpr et this result as normal/abnormal . GRAN MAT (NEUT) % 71.6 % (test code = 770-8) IMM GRAN % (test 0.40 % code = 7034987875) LYMPH % (test code 22.7 % = 736-9) MONO % (test code 4.3 % = 5905-5) EOS % (test code = 0.6 % 713-8) BASO % (test code 0.4 % = 706-2) GRAN MAT 6.05 10*3/uL 1.88-7.09 x10^3(ANC) (test code = 6448361710) IMM GRAN x10^3 0.03 10*3/uL 0.00-0.06 (test code = 9688209360) LYMPH x10^3 (test 1.92 10*3/uL 1.32-3.29 code = 731-0) MONO x10^3 (test 0.36 10*3/uL 0.33-0.92 code = 742-7) EOS x10^3 (test 0.05 10*3/uL 0.03-0.39 code = 711-2) BASO x10^3 (test 0.03 10*3/uL 0.01-0.07 code = 704-7) [facility] [id number] 20:50:00 Test Item Value Reference Range Interpretation Comments POCT PREG (test code = 1605) negative On board controls acceptable with present C Line (test code = 3574) POCT PREG LOT # (test code = 3575) [id number] POCT PREG TEST DATE (test 03/10/2023 code = 3576) Lab Interpretation (test code = Normal 57600-4) [facility]"
[2021-10-19] MEDS ORDERED: MORPHINE 4 MG/ML SYR ONE (23:23)
[2021-10-19] MEDS ORDERED: NA CHLORIDE 0.9% 1,000 ML ONE (23:23)
[2021-10-19] MEDS ORDERED: ONDANSETRON 4 MG/2 ML VIAL ONE (23:23)
[2021-10-19 23:26] LABS: Urine Blood Negative (Negative); Urine Glucose Negative (Negative); Urine Protein Negative (Negative)
[2021-10-19 23:27] LABS: Absolute Lymphocytes (CBC) 2.3 K/uL (0.7-4.9); Hematocrit 38.1 % (36.0-45.0); Lymphocytes % 25.1 % (15.3-44.8); MPV 8.6 fL (7.6-11.3); RBC Red Blood Cell Count 4.55 M/uL (3.86-4.86)
[2021-10-19 23:44] LABS: Albumin 3.4 g/dL (3.4-5.0); Bilirubin Total 0.1 mg/dL (0.2-1.0); Potassium 4.4 mmol/L (3.5-5.1)
[2021-10-20 00:11] LABS: Urine Amorphous Sediment 1+ /HPF (NONE SEEN); Urine Bacteria 20-50 /HPF (<20); Urine RBC <5 /HPF (NONE SEEN); Urine Urothelial Cells <5 /HPF (NONE SEEN)
--- NOTE | 2021-10-20 01:44 | ER ---
Nurse's Notes [facility] Name: Robyn Leung Age: 31 yrs Sex: Female : 1990 Arrival Date: 10/19/2021 Time: 21:43 Bed 16 Private MD: Diagnosis: Chest pain on breathing;Abdominal tenderness;Obesity, unspecified Presentation: 10/19 21:48 Chief complaint: Patient states: Appendectomy was on 10/15/2021. C/O left sided pain - ld1 abdomen and back. SpO2 100% upon arrival to ER. Coronavirus screen: At this time, the client does not indicate any symptoms associated with coronavirus-19. Ebola Screen: No symptoms or risks identified at this time. Initial Sepsis Screen: Does the patient meet any 2 criteria? No. Patient's initial sepsis screen is negative. Does the patient have a suspected source of infection? No. Patient's initial sepsis screen is negative. Risk Assessment: Do you want to hurt yourself or someone else? Patient reports no desire to harm self or others. Onset of symptoms was October 19, 2021. 21:48 Method Of Arrival: Ambulatory ld1 21:48 Acuity: EFRAIN 3 ld1 Triage Assessment: 21:49 General: Appears in no apparent distress. uncomfortable, Behavior is calm, cooperative, ld1 appropriate for age. Pain: Complains of pain in posterior aspect of left lateral abdomen and anterior aspect of left lateral abdomen Pain does not radiate. Pain currently is 9 out of 10 on a pain scale. Quality of pain is described as throbbing. EENT: No signs and/or symptoms were reported regarding the EENT system. Neuro: Level of Consciousness is awake, alert, obeys commands, Oriented to person, place, time, situation. Cardiovascular: Capillary refill < 3 seconds Patient's skin is warm and dry. Respiratory: Reports shortness of breath at rest on exertion Airway is patent Respiratory effort is even, unlabored, Onset: The symptoms/episode began/occurred gradually, the patient has mild shortness of breath. GI: Abdomen is round obese. : No signs and/or symptoms were reported regarding the genitourinary system. 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 - Social history:: Smoking status: Patient denies any tobacco usage or history of. Patient/guardian denies using alcohol. Screenin:44 Abuse screen: Denies threats or abuse. Denies injuries from another. Nutritional sm5 screening: No deficits noted. Tuberculosis screening: No symptoms or risk factors identified. Fall Risk None identified. Assessment: 23:43 General: Appears uncomfortable, Behavior is cooperative. Pain: Complains of pain in sm5 left lower quadrant and left upper quadrant and abdomen. Neuro: No deficits noted. Sow Agitation-Sedation Scale (RASS): 0 - Alert and Calm Level of Consciousness is awake, alert, obeys commands, Oriented to person, place, time, situation. Cardiovascular: Capillary refill < 3 seconds Patient's skin is warm and dry. Rhythm is regular. Respiratory: No deficits noted. Airway is patent Trachea midline Respiratory effort is even, unlabored, Breath sounds are clear bilaterally. GI: Abdomen is non-distended, Reports lower abdominal pain, upper abdominal pain. Derm: surgical incisions on abd. 10/20 00:47 Reassessment: No changes from previously documented assessment. Patient and/or family 5 updated on plan of care and expected duration. Pain level reassessed. 02:00 Reassessment: Patient states symptoms have improved. [facility] Vital Signs: 10/19 21:48 BP 123 / 84; Pulse 115; Resp 18; Temp 98.7(TE); Pulse Ox 100% on R/A; Weight 89.36 kg; ld1 Height 5 ft. 0 in. (152.40 cm); Pain 9/10; 23:44 BP 108 / 63; Pulse 80; Resp 17; Pulse Ox 95% on R/A; 5 10/20 01:00 BP 104 / 70; Pulse 77; Resp 16; Pulse Ox 100% on R/A; 5 02:01 BP 110 / 71; Pulse 75; Resp 17; Pulse Ox 99% on R/A; 5 10/19 21:48 Body Mass Index 38.47 (89.36 kg, 152.40 cm) [facility] ED Course: 10/19 21:43 Patient arrived in ED. jj6 21:49 Triage completed. ld1 21:49 Arm band placed on right wrist. ld1 22:33 Max Main MD is Attending Physician. stacy 22:56 Maira Ring, SAIDA is Primary Nurse. sm5 23:14 Inserted saline lock: 20 gauge in left antecubital area, using aseptic technique. Blood sm5 collected. 23:19 CBC with Diff Sent. sm5 23:19 CMP Sent. sm5 23:19 Lipase Sent. sm5 10/20 00:41 CT Chest For PE Angio In Process Unspecified. EDMS 00:41 CT Abd/Pelvis - IV Contrast Only In Process Unspecified. EDMS 02:00 Patient has correct armband on for positive identification. Placed in gown. Bed in low sm5 position. Call light in reach. Side rails up X2. Pulse ox on. NIBP on. 02:01 No provider procedures requiring assistance completed. IV discontinued, intact, sm5 bleeding controlled, No redness/swelling at site. Pressure dressing applied. Administered Medications: 10/19 23:20 Drug: NS 0.9% 1000 ml Route: IV; Rate: 1 bolus; Site: left antecubital; 5 10/20 02:02 Follow up: IV Status: Completed infusion; IV Intake: 1000ml 5 10/19 23:20 Drug: morphine 2 mg Route: IVP; Site: left antecubital; 5 23:20 CANCELLED (Duplicate Order): morphine 2 mg IVP once 5 23:21 Drug: Zofran (Ondansetron) 4 mg Route: IVP; Site: left antecubital; 5 10/20 02:02 Follow up: Response: No adverse reaction [facility] 10/19 23:21 Drug: morphine 2 mg Route: IVP; Site: left antecubital; 5 10/20 02:02 Follow up: Response: Pain is decreased [facility] 10/19 23:28 Drug: NS 0.9% 1000 ml Route: IV; Rate: 1 bolus; Site: left antecubital; 1 10/20 02:02 Follow up: IV Status: Completed infusion; IV Intake: 1000ml sm5 Medication: 02:00 VIS not applicable for this client. sm5 Intake: 02:02 IV: 1000ml; Total: 1000ml. sm5 02:02 IV: 1000ml; Total: 2000ml. 5 Outcome: 01:44 Discharge ordered by . stacy 02:01 Discharged to home ambulatory. 5 02:01 Condition: stable 02:01 Discharge instructions given to patient, Instructed on discharge instructions, follow up and referral plans. medication usage, Demonstrated understanding of instructions, follow-up care, medications, Prescriptions given X 2. 02:03 Patient left the ED. 5 Signatures: Dispatcher [employer] [facility] Max Main MD MD cha Dibbern, Lauren, RN RN ld1 Krista Ulrich Sarah, RN RN sm5 Corrections: (The following items were deleted from the chart) 10/19 21:50 21:49 PSHx: None; [email or web address] ld1
--- NOTE | 2021-10-20 01:44 | EDPHYS ---
Physician Documentation [facility] Name: Robyn Leung Age: 31 yrs Sex: Female : 1990 Arrival Date: 10/19/2021 Time: 21:43 Bed 16 Private MD: ED Physician Max Main HPI: 10/19 22:43 This 31 yrs old Female presents to ER via Ambulatory with complaints of Post stacy Surgical Pain, Shortness Of Breath, Abdominal Pain. 22:43 The patient has shortness of breath at rest, with light activity. Onset: The stacy symptoms/episode began/occurred 2 day(s) ago. Duration: The symptoms are continuous, and are steadily getting worse. The patient's shortness of breath is aggravated by exertion, light activity, supine position, is alleviated by rest. Associated signs and symptoms: Pertinent positives: chest pain, non-productive cough, nausea. Severity of symptoms: At their worst the symptoms were moderate in the emergency department the symptoms are unchanged. The patient has not experienced similar symptoms in the past. 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 - Social history:: Smoking status: Patient denies any tobacco usage or history of. Patient/guardian denies using alcohol. ROS: 22:44 Constitutional: Negative for fever, chills, and weight loss, Eyes: Negative for injury, stacy pain, redness, and discharge, ENT: Negative for injury, pain, and discharge, Neck: Negative for injury, pain, and swelling, Cardiovascular: Negative for chest pain, palpitations, and edema, Respiratory: Negative for shortness of breath, cough, wheezing, and pleuritic chest pain, : Negative for injury, bleeding, discharge, and swelling, MS/Extremity: Negative for injury and deformity, Skin: Negative for injury, rash, and discoloration, Neuro: Negative for headache, weakness, numbness, tingling, and seizure, Psych: Negative for depression, anxiety, suicide ideation, homicidal ideation, and hallucinations, Allergy/Immunology: Negative for hives, rash, and allergies, Endocrine: Negative for neck swelling, polydipsia, polyuria, polyphagia, and marked weight changes. 22:44 Respiratory: Positive for pleurisy, of the chest. 22:44 Abdomen/GI: Positive for abdominal pain, abdominal cramps, of the left upper quadrant and left lower quadrant. Exam: 22:44 Constitutional: This is a well developed, well nourished patient who is awake, alert, stacy and in no acute distress. Head/Face: Normocephalic, atraumatic. Eyes: Pupils equal round and reactive to light, extra-ocular motions intact. Lids and lashes normal. Conjunctiva and sclera are non-icteric and not injected. Cornea within normal limits. Periorbital areas with no swelling, redness, or edema. ENT: Nares patent. No nasal discharge, no septal abnormalities noted. Tympanic membranes are normal and external auditory canals are clear. Oropharynx with no redness, swelling, or masses, exudates, or evidence of obstruction, uvula midline. Mucous membranes moist. Neck: Trachea midline, no thyromegaly or masses palpated, and no cervical lymphadenopathy. Supple, full range of motion without nuchal rigidity, or vertebral point tenderness. No Meningismus. Chest/axilla: Normal chest wall appearance and motion. Nontender with no deformity. No lesions are appreciated. Respiratory: Lungs have equal breath sounds bilaterally, clear to auscultation and percussion. No rales, rhonchi or wheezes noted. No increased work of breathing, no retractions or nasal flaring. Back: No spinal tenderness. No costovertebral tenderness. Full range of motion. Skin: Warm, dry with normal turgor. Normal color with no rashes, no lesions, and no evidence of cellulitis. MS/ Extremity: Pulses equal, no cyanosis. Neurovascular intact. Full, normal range of motion. Neuro: Awake and alert, GCS 15, oriented to person, place, time, and situation. Cranial nerves II-XII grossly intact. Motor strength 5/5 in all extremities. Sensory grossly intact. Cerebellar exam normal. Normal gait. Psych: Awake, alert, with orientation to person, place and time. Behavior, mood, and affect are within normal limits. 22:44 Cardiovascular: Rate: tachycardic, Rhythm: regular, Pulses: Pulses are 4+ in bilateral radial, brachial, femoral, popliteal, posterior tibial and and dorsalis pedis arteries.. Heart sounds: normal, Edema: is not appreciated, JVD: is not appreciated. Vital Signs: 21:48 BP 123 / 84; Pulse 115; Resp 18; Temp 98.7(TE); Pulse Ox 100% on R/A; Weight 89.36 kg; ld1 Height 5 ft. 0 in. (152.40 cm); Pain 9/10; 23:44 BP 108 / 63; Pulse 80; Resp 17; Pulse Ox 95% on R/A; sm5 10/20 01:00 BP 104 / 70; Pulse 77; Resp 16; Pulse Ox 100% on R/A; sm5 02:01 BP 110 / 71; Pulse 75; Resp 17; Pulse Ox 99% on R/A; sm5 10/19 21:48 Body Mass Index 38.47 (89.36 kg, 152.40 cm) ld1 MDM: 10/19 22:33 Patient medically screened. stacy 22:46 Differential diagnosis: pyelonephritis, UTI, diverticulitis, pancreatitis, pulmonary stacy edema, Pulmonary Embolism bowel obstruction, diverticulitis, pancreatitis, Peritonitis, Pelvic Inflammatory Disease, Pyelonephritis. The patient's Wells Deep Vein Thrombosis Score was calculated as follows: Heart Rate >100 BPM (1.5 Pts) Imm/Surg in last 4 wks (1.5 Pts) Total Score: 3-6 Pts - Mod Risk. The patient's pulmonary embolism risk score was calculated as follows: the patients heart rate is greater than 100 beats per minute (1.5 Pts) patient has experienced immobilization or surgery in the last four weeks (1.5 Pts) Total Score: 3-6 points. This patient was found to be at moderate risk for a pulmonary embolism by using the Well's assessment criteria. Immunization status:. Data reviewed: vital signs, nurses notes, lab test result(s), radiologic studies, CT scan. Data interpreted: cafeteria monitor: rate is 115 beats/min, rhythm is regular, Pulse oximetry: on room air is 100 %. Test interpretation: by ED physician or midlevel provider:. Counseling: I had a detailed discussion with the patient and/or guardian regarding: the historical points, exam findings, and any diagnostic results supporting the discharge/admit diagnosis, lab results, radiology results. 10/19 22:43 Order name: CBC with Diff; Complete Time: 00:29 [facility] 10/19 22:43 Order name: CMP; Complete Time: 00:29 [facility] 10/19 22:43 Order name: Lipase; Complete Time: 00:29 [facility] 10/19 22:43 Order name: Urine Microscopic Only; Complete Time: 00:29 [facility] 10/19 22:43 Order name: Urine Culture [facility] 10/19 23:26 Order name: Urine --Ancillary (enter results); Complete Time: 00:29 [facility] 10/19 22:43 Order name: CT Chest For PE Angio [facility] 10/19 22:43 Order name: CT Abd/Pelvis - IV Contrast Only [facility] 10/19 23:27 Order name: Urine Dipstick-Ancillary; Complete Time: 00:29 [facility] 10/19 22:43 Order name: IV Saline Lock; Complete Time: 23:19 [facility] 10/19 22:43 Order name: Labs collected and sent; Complete Time: 23:19 [facility] 10/19 22:43 Order name: Urine Dipstick-Ancillary (obtain specimen); Complete Time: 23:23 [facility] 10/19 22:43 Order name: Urine Test (obtain specimen); Complete Time: 23:23 [facility] Administered Medications: 23:20 Drug: NS 0.9% 1000 ml Route: IV; Rate: 1 bolus; Site: left antecubital; [facility] 10/20 02:02 Follow up: IV Status: Completed infusion; IV Intake: 1000ml [facility] 10/19 23:20 Drug: morphine 2 mg Route: IVP; Site: left antecubital; [facility] 23:20 CANCELLED (Duplicate Order): morphine 2 mg IVP once [facility] 23:21 Drug: Zofran (Ondansetron) 4 mg Route: IVP; Site: left antecubital; [facility] 10/20 02:02 Follow up: Response: No adverse reaction [facility] 10/19 23:21 Drug: morphine 2 mg Route: IVP; Site: left antecubital; [facility] 10/20 02:02 Follow up: Response: Pain is decreased [facility] 10/19 23:28 Drug: NS 0.9% 1000 ml Route: IV; Rate: 1 bolus; Site: left antecubital; [facility] 10/20 02:02 Follow up: IV Status: Completed infusion; IV Intake: 1000ml sm5 Disposition Summary: 10/20/21 01:44 Discharge Ordered Location: Home [facility] Problem: new stacy Symptoms: have improved stacy Condition: Stable stacy Diagnosis - Chest pain on breathing stacy - Abdominal tenderness stacy - Obesity, unspecified stacy Followup: stacy - With: Private Physician - When: 2 - 3 days - Reason: Recheck today's complaints, Continuance of care, Re-evaluation by your physician Discharge Instructions: - Discharge Summary Sheet stacy - Abdominal Pain, Adult stacy - Nonspecific Chest Pain, Adult stacy - Costochondritis stacy - Obesity, Adult stacy - How to Use an Incentive Spirometer stacy - Chest Wall Pain, [id number] stacy - Abdominal Pain, Adult, [id number] stacy Forms: - Medication Reconciliation Form stacy - Thank You Letter stacy - Antibiotic Education stacy - Prescription Opioid Use [facility] Prescriptions: - Colace 100 mg Oral Tablet - take 1 tablet by ORAL route every 12 hours; 14 tablet; Refills: 0, Product stacy Selection Permitted - dicyclomine 20 mg Oral Tablet - take 1 tablet by ORAL route 4 times per day; 8 tablet; Refills: 0, Product [facility] Selection Permitted Signatures: Dispatcher [employer] Max Granados MD MD cha Dibbern, Lauren RN RN ld1 Maira Ring RN RN sm5 Corrections: (The following items were deleted from the chart) 10/19 21:50 21:49 PSHx: None; ld1 ld1 23:20 23:20 morphine 2 mg IVP once ordered. sm5 sm5
[2021-10-20 03:44] VITALS: TEMP 98.7
[2021-10-20 03:48] VITALS: BP 110/71; O2SAT 99
--- NOTE | 2021-10-20 15:45 | RAD REPORT ---
EXAM DESCRIPTION: CT - Abdomen Pelvis W Contrast - 10/20/2021 5:42 am CLINICAL HISTORY: 31 years, Female, LLQ abdominal pain COMPARISON: None. TECHNIQUE: Contrast-enhanced images of the abdomen and pelvis were performed utilizing 5 mm slice th ickness at 5 mm interval reconstruction from the lung bases to the ischial tuberosities after the adm inistration IV contrast. In addition multiplanar reformats in the coronal and sagittal plane were obtained and reviewed. This exam was performed according to our departmental dose-optimization protocol, which includes auto mated exposure control, adjustment of the mA and/or kV according to patient size and/or use of iterat issac reconstruction technique. FINDINGS: The lung bases demonstrate to be clear. The liver demonstrates slight decreased attenuation suggesting mild fatty infiltration. Surgical clip s within the gallbladder fossa correspond to previous cholecystectomy. The pancreas, spleen and adrenal glands demonstrate to be unremarkable, no focal lesions are noted. The kidneys demonstrate normal uptake of contrast media. No evidence for nephrolithiasis and/or hydro nephrosis. Grossly the unopacified stomach, small bowel and large bowel demonstrate to be within normal limits. There is no evidence for bowel dilatation/or free air. Clips within the right lower quadrant/cecum could correspond to previous appendectomy. There is mild fecal stasis. The urinary bladder demonstrate to be unremarkable. The uterus is unremarkable. There is a right ad nexal cystic structure with rim wall enhancement measuring 2.1 x 1.8 cm corresponding to most likely a corpus fluid and cyst. The aorta demonstrate to be normal. There is no retroperitoneal lymphade nopathy. There is no evidence for ascites or and/or significant abnormal fluid collections. The rest of the soft tissue and bony structures are within normal limits. IMPRESSION: Mild fecal stasis. 2.1 cm right adnexal corpus luteum. No follow-up imaging is recommended. Mild fatty infiltration of the liver. Status post cholecystectomy and appendectomy. Electronically signed by: Howard Tran MD 10/20/2021 1:07 AM CDT Due to temporary technical issues with the PACS/Fluency reporting system, reports are being signed by the in house radiologists without review as a courtesy to insure prompt reporting. The interpreting radiologist is fully responsible for the content of the report.
--- NOTE | 2021-10-20 15:47 | RAD REPORT ---
EXAM DESCRIPTION: CT - Chest For Pe Angio - 10/20/2021 5:42 am CLINICAL HISTORY: 31 years, Female, CP/SOB COMPARISON: None. TECHNIQUE: Multiple transaxial tomograms of the chest were obtained from the lung apices through the lung bases utilizing 2 mm slice thickness at 2 mm interval reconstruction after the administration o f large bolus of IV contrast for complete opacification of the pulmonary arteries. Subsequent 3-D maximum intensity projection images were generated in the coronal and sagittal plane f or review. This exam was performed according to our departmental dose-optimization protocol, which includes auto mated exposure control, adjustment of the mA and/or kV according to patient size and/or use of iterat issac reconstruction technique. FINDINGS: The lungs parenchyma demonstrate demonstrate to be clear. No masses, nodules and/or consol idations are identified. There is no evidence for pneumothorax. The trachea mainstem bronchus demonstrate to be normal. There is no significant pericardial or pleura l effusions. The thoracic aorta demonstrate demonstrate to be within normal limits. There is no evidence for thora cic aortic dissection/or aneurysm. The heart is normal in size. No evidence for right ventricular str ain. There are no significant coronary artery calcifications. T there is a partially calcified lymph nodes within the prevascular space/AP window measuring 0.9 cm on image 109, partially calcified glioma subcarinal region measuring 0.8 cm on image 88 here is no si gnificant mediastinal and/or hilar lymphadenopathy. The axillary regions demonstrate to be clear. Pulmonary arteries demonstrate to be normal, no intraluminal defect are seen that would suggest pulmo nary embolus. The bone windows demonstrate no significant skeletal lesions. Evaluation of the abdomen and pelvis will be given in separate report.. IMPRESSION: No evidence for pulmonary embolism and/or thoracic aortic dissection. Partially calcified lymph nodes within the prevascular space/AP window and subcarinal region suggesti ve of old granulomatous disease. Electronically signed by: Howard Tran MD 10/20/2021 1:11 AM CDT Due to temporary technical issues with the PACS/Fluency reporting system, reports are being signed by the in house radiologists without review as a courtesy to insure prompt reporting. The interpreting radiologist is fully responsible for the content of the report.
== END 2021-10-20 02:03 | disposition home or self-care (01) ==
LOC: ER 21:42
DX: R07.1 Chest pain on breathing (principal); R10.819 Abdominal tenderness, unspecified site; E66.9 Obesity, unspecified; Z68.38 Body mass index [BMI] 38.0-38.9, adult; Z88.0 Allergy status to penicillin
CPT/HCPCS: 36415; 71275; 74177; 80053; 81003; 81015; 81025; 83690; 85025; 87086; 87088; 96361; 96374; 96375; 99284; J2405; J7030; Q9967